=== PATIENT | male | born 1950 | race Caucasian/White ===

== ENCOUNTER 2022-05-26 12:14 | Inpatient (IN) ==
[2022-05-26] MEDS ORDERED: 0.9 % SODIUM CHLORIDE 500 ML IV ONE ×2 (12:15→12:36)
[2022-05-26] MEDS ORDERED: IOPAMIDOL 100 ML BOTTLE IV ONE (12:15)
[2022-05-26 12:34] LABS: POC Calcium, Ionized 1.14 (1.16-1.32); POC Creatinine 2.3 (0.6-1.2); POC Potassium 4.2 (3.3-5.1)
[2022-05-26] MEDS ORDERED: methylPREDNISolone SOD SUCC 125 MG/2 ML VIAL IV ONE (12:36)
[2022-05-26] MEDS ORDERED: IPRATROPIUM/ALBUTEROL 3 ML AMPUL.NEB NEB ONE (12:36)
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
[2022-05-26 13:29] LABS: Hematocrit 39.6 % (40.1-51.0); Hemoglobin 12.2 g/dL (13.7-17.5); Mean Cell Volume 89.8 fL (80.0-100.0); Mean Corpuscular HGB Conc 30.8 g/dL (31.0-36.0); Mean Platelet Volume 8.8 fL (8.8-12.5); Platelet Count 554 K/mcL (140-440); RBC 4.41 M/mcL (4.63-6.08); Red Cell Distribution Width 15.6 % (11.5-14.5); WBC 20.1 K/mcL (4.5-11.0)
--- NOTE | 2022-05-26 13:31 | Cat Scan Report ---
INDICATION: AMS COMPARISON: Previous MRI scan dated 06/16/2021 TECHNIQUE: Axial noncontrast-enhanced images through the brain. Sagittally and coronally reformatted images. FINDINGS: Cerebral hemispheres:This no acute intra-axial hemorrhage. No focal attenuation abnormalities or localized mass effect.There is cerebral atrophy with enlargement of superficial subarachnoid spaces and ventricles. There is severe white matter abnormality. This is considered advanced for age. This is probably secondary to small vessel ischemic change. Clinical correlation for history of diabetes or hypertension recommended. Demyelinating disease, or vasculitis could have a similar appear Brainstem and cerebellum:No intra-axial abnormality Extra-axial:No acute hemorrhage. No subdural or epidural hematoma. No subarachnoid hemorrhage. Basilar cisterns are normal Calvarial:No calvarial fracture. No lytic lesion Temporal bones are negative. No destructive lesions Soft tissue, orbits, sinuses:Mild inflammatory disease in the maxillary sinuses IMPRESSION: 1. Cerebral atrophy and severe white matter abnormality 2. No acute abnormality The exam was performed using radiation dose optimization techniques including, but not limited to, automated exposure control, adjustment of the mA and/or kV according to patient size and use of iterative reconstruction technique. Interpreted and Authenticated by: Carlton Geller 05/26/22
--- NOTE | 2022-05-26 13:32 | XRay Report ---
INDICATION: cough TECHNIQUE: AP portable semiupright chest x-ray COMPARISON: Previous chest x-rays dated 03/08/2022, 05/10/2015 FINDINGS: Lungs:Lungs are negative. No focal pulmonary parenchymal infiltrate or mass Heart, vascular:No significant cardiomegaly. Pulmonary vascularity is normal. No pulmonary edema or pulmonary congestion Mediastinum, rebecca:No mediastinal widening. No hilar mass Pleura:Elevation of the left hemidiaphragm. No evidence for pleural effusion Skeletal:Negative. IMPRESSION: 1. Elevated left hemidiaphragm 2. Otherwise negative AP chest x-ray Interpreted and Authenticated by: Carlton Geller 05/26/22
[2022-05-26 13:47] LABS: ALT/SGPT 8 U/L (<40); AST/SGOT 13 U/L (<40); Alkaline Phosphatase 104 U/L (39-117); Bilirubin,Total 0.3 mg/dL (0.1-1.0); Blood Urea Nitrogen 25 mg/dL (8-23); Calcium 9.2 mg/dL (8.6-10.4); Carbon Dioxide 24 mmol/L (22-30); Chloride 99 mmol/L (96-108); Globulin 3.9 gm/dL (2.2-3.7); Glomerular Filtration Rate 30; Glucose 141 mg/dL (70-105)
[2022-05-26 13:56] LABS: Band Neutrophils % 4 % (0-10); Lymphocytes % 7 % (15-49); Monocytes % (Manual) 7 % (1-12); Platelet Estimate INCREASED (Normal); RBC Morphology NORMAL (Normal); Segmented Neutrophils % 82 % (38-78)
[2022-05-26 16:03] LABS: Appearance,Urine CLOUDY (Clear); Bacteria,Urine MANY /hpf (0); Bilirubin,Urine Negative (Negative); Color,Urine YELLOW; Culture Indicated,Urine yes; Glucose,Urine (UA) Negative (Negative); Ketones,Urine 5 mg/dL (Negative); Leukocyte Esterase,Urine 250 /uL (Negative); Mucus,Urine FEW /hpf; Nitrate,Urine Negative (Negative); Protein,Urine 100 mg/dL (Negative); Specific Gravity,Urine 1.012 (1.000-1.035); Urine Blood >=1.0 mg/dL (Negative); Urine Cellular Cast 3 /lph (0-0); Urine Granular Cast 4 /lph (0-0); Urine Hyaline Cast 3 /lph (0-2); Urine RBC 103 /hpf (0-3); Urine Squamous Epithelial Cell 0 /hpf (0-4); Urine Transitional Epi Cells 1 /hpf (0-2); Urine WBC 170 /hpf (0-4); Urobilinogen,Urine Negative
[2022-05-26] MEDS ORDERED: LEVOFLOXACIN 500 MG/100 ML BAG IV ONE (16:06)
--- NOTE | 2022-05-26 19:53 | Emergency Department Note ---
Course Course Course Narrative: I assumed care of patient at 1899 pending lab and imaging results, please refer to Dr. Mansfield's note for detailed providing patient's care prior to 1899. Repeat VBG and lactic show that patient's pH was normal and his lactic acid have improved. CT of the chest abdomen pelvis was obtained and was negative for PE but did show left middle lobe pneumonia and lung impaction which would be attributing to his hypoxia. Patient was weaned down to 4 L of oxygen via mask from 10 L. Patient does meet sepsis criteria due to his UTI, pneumonia, leukocytosis and a heart rate of 99 on initial presentation. Case was discussed with hospitalist who has graciously except the patient to be admitted to the hospital. Plan of care discussed with patient and family and expressed verbal understanding and agreement. Vital Signs Vital signs: Vital Signs Temperature 97.5 F 05/26/22 12:22 Pulse Rate 99 H 05/26/22 12:22 Respiratory Rate 22 05/26/22 12:22 Blood Pressure 142/87 05/26/22 12:22 Pulse Oximetry (%) 91 05/26/22 12:22 Oxygen Delivery Method 05/26/22 12:22 Oxygen Flow Rate (L/min) 5 05/26/22 12:22 Temperature 97.5 F 05/26/22 12:22 Pulse Rate 72 05/26/22 19:16 Respiratory Rate 15 05/26/22 19:31 Blood Pressure 160/87 05/26/22 19:31 Pulse Oximetry (%) 98 05/26/22 19:31 Oxygen Delivery Method 05/26/22 19:32 Oxygen Flow Rate (L/min) 4 05/26/22 19:32 [facility] MDM Narrative Medical decision making narrative: Narrative: Differential Diagnosis Differential Diagnosis: Sepsis, encephalopathy, pneumonia Medical Records Medical records reviewed: Yes I reviewed the patient's medical records. Lab Data Lab results reviewed: Yes I reviewed the patient's lab results. Result diagrams: 05/26/22 12:43 05/26/22 12:37 Labs: Lab Results 05/26/22 05/26/22 05/26/22 Range/Units 12:26 12:37 12:37 WBC 20.1 H (4.5-11.0) K/mcL RBC 4.41 L (4.63-6.08) M/mcL Hgb 12.2 L (13.7-17.5) g/dL Hct 39.6 L (40.1-51.0) % POC Hct 40.0 L (41-55) MCV 89.8 (80.0-100.0) fL MCH 27.7 (26.0-34.0) pg MCHC 30.8 L (31.0-36.0) g/dL RDW 15.6 H (11.5-14.5) % Plt Count 554 H (140-440) K/mcL MPV 8.8 (8.8-12.5) fL Immature Gran % (Auto) Neut % (Auto) Lymph % (Auto) [place] % (Auto) Eos % (Auto) Baso % (Auto) Lymph # (Auto) [place] # (Auto) Eos # (Auto) Baso # (Auto) Seg Neutrophils % 82 H (38-78) % Band Neutrophils % 4 (0-10) % Lymphocytes % 7 L (15-49) % Monocytes % (Manual) 7 (1-12) % Immature Gran # Absolute Neutrophils Differential Comment Platelet Estimate Increased A (Normal) RBC Morphology Normal (Normal) D-Dimer (0.27-0.50) ug/mL POC VBG pH (7.32-7.42) POC VBG pCO2 at Temp (41-51) POC VBG pO2 (25-40) POC VBG HCO3 (24-28) POC VBG Total CO2 (25-29) POC Venous O2 Sat (40-70) POC VBG Base Excess (-2-2) VBG Lactic Acid 1.9 (0.5-2.0) mmol/L POC Sodium 142 (133-145) Sodium 139 (133-145) mmol/L POC Potassium 4.2 (3.3-5.1) Potassium 4.0 (3.3-5.1) mmol/L POC Chloride 106 (96-108) Chloride 99 (96-108) mmol/L Carbon Dioxide 24 (22-30) mmol/L POC Total CO2 25.0 (22-30) Anion Gap 16.0 (8.0-16.0) POC BUN 33 H (6-20) BUN 25 H (8-23) mg/dL Creatinine 2.1 H (0.7-1.2) mg/dL POC Creatinine 2.3 H (0.6-1.2) GFR Calculation 30 Glucose 141 H (70-105) mg/dL POC Glucose 142 H (70-105) Calcium 9.2 (8.6-10.4) mg/dL POC WB Ioniz Calcium 1.14 L (1.16-1.32) Total Bilirubin 0.3 (0.1-1.0) mg/dL AST 13 (<40) U/L ALT 8 (<40) U/L Alkaline Phosphatase 104 (39-117) U/L C-Reactive Protein (0.03-0.80) mg/dL Total Protein 7.9 (5.9-8.4) gm/dL Albumin 4.0 (3.2-5.2) gm/dL Globulin 3.9 H (2.2-3.7) gm/dL Albumin/Globulin Ratio 1.0 (1.0-2.3) Urine Color Urine Appearance (Clear) Urine pH (5.0-9.0) Ur Specific [place] (1.000-1.035) Urine Protein (Negative) mg/dL Urine Glucose (UA) (Negative) mg/dL Urine Ketones (Negative) mg/dL Urine Occult Blood (Negative) mg/dL Urine Nitrate (Negative) Urine Bilirubin (Negative) mg/dL Urine Urobilinogen mg/dL Ur Leukocyte Esterase (Negative) /uL Urine RBC (0-3) /hpf Urine WBC (0-4) /hpf Ur Squamous Epith Cells (0-4) /hpf Ur Transition Epith Cell (0-2) /hpf Urine Bacteria (0) /hpf Cellular Casts (0-0) /lph Hyaline Casts (0-2) /lph Granular Casts (0-0) /lph Urine Mucus (None) /hpf Ur Culture Indicated? POC Troponin I (0.00-0.08) 05/26/22 05/26/22 05/26/22 Range/Units 12:37 12:43 12:43 WBC TNP (4.5-11.0) K/mcL RBC TNP (4.63-6.08) M/mcL Hgb TNP (13.7-17.5) g/dL Hct TNP (40.1-51.0) % POC Hct (41-55) MCV TNP (80.0-100.0) fL MCH TNP (26.0-34.0) pg MCHC TNP (31.0-36.0) g/dL RDW TNP (11.5-14.5) % Plt Count TNP (140-440) K/mcL MPV TNP (8.8-12.5) fL Immature Gran % (Auto) TNP Neut % (Auto) TNP Lymph % (Auto) TNP [place] % (Auto) TNP Eos % (Auto) TNP Baso % (Auto) TNP Lymph # (Auto) TNP [place] # (Auto) TNP Eos # (Auto) TNP Baso # (Auto) TNP Seg Neutrophils % (38-78) % Band Neutrophils % (0-10) % Lymphocytes % (15-49) % Monocytes % (Manual) (1-12) % Immature Gran # TNP Absolute Neutrophils TNP Differential Comment TNP Platelet Estimate (Normal) RBC Morphology (Normal) D-Dimer 2.49 H (0.27-0.50) ug/mL POC VBG pH (7.32-7.42) POC VBG pCO2 at Temp (41-51) POC VBG pO2 (25-40) POC VBG HCO3 (24-28) POC VBG Total CO2 (25-29) POC Venous O2 Sat (40-70) POC VBG Base Excess (-2-2) VBG Lactic Acid (0.5-2.0) mmol/L POC Sodium (133-145) Sodium (133-145) mmol/L POC Potassium (3.3-5.1) Potassium (3.3-5.1) mmol/L POC Chloride (96-108) Chloride (96-108) mmol/L Carbon Dioxide (22-30) mmol/L POC Total CO2 (22-30) Anion Gap (8.0-16.0) POC BUN (6-20) BUN (8-23) mg/dL Creatinine (0.7-1.2) mg/dL POC Creatinine (0.6-1.2) GFR Calculation Glucose (70-105) mg/dL POC Glucose (70-105) Calcium (8.6-10.4) mg/dL POC WB Ioniz Calcium (1.16-1.32) Total Bilirubin (0.1-1.0) mg/dL AST (<40) U/L ALT (<40) U/L Alkaline Phosphatase (39-117) U/L C-Reactive Protein 12.10 H (0.03-0.80) mg/dL Total Protein (5.9-8.4) gm/dL Albumin (3.2-5.2) gm/dL Globulin (2.2-3.7) gm/dL Albumin/Globulin Ratio (1.0-2.3) Urine Color Urine Appearance (Clear) Urine pH (5.0-9.0) Ur Specific [place] (1.000-1.035) Urine Protein (Negative) mg/dL Urine Glucose (UA) (Negative) mg/dL Urine Ketones (Negative) mg/dL Urine Occult Blood (Negative) mg/dL Urine Nitrate (Negative) Urine Bilirubin (Negative) mg/dL Urine Urobilinogen mg/dL Ur Leukocyte Esterase (Negative) /uL Urine RBC (0-3) /hpf Urine WBC (0-4) /hpf Ur Squamous Epith Cells (0-4) /hpf Ur Transition Epith Cell (0-2) /hpf Urine Bacteria (0) /hpf Cellular Casts (0-0) /lph Hyaline Casts (0-2) /lph Granular Casts (0-0) /lph Urine Mucus (None) /hpf Ur Culture Indicated? POC Troponin I (0.00-0.08) 05/26/22 05/26/22 05/26/22 Range/Units 12:59 15:05 19:32 WBC (4.5-11.0) K/mcL RBC (4.63-6.08) M/mcL Hgb (13.7-17.5) g/dL Hct (40.1-51.0) % POC Hct (41-55) MCV (80.0-100.0) fL MCH (26.0-34.0) pg MCHC (31.0-36.0) g/dL RDW (11.5-14.5) % Plt Count (140-440) K/mcL MPV (8.8-12.5) fL Immature Gran % (Auto) Neut % (Auto) Lymph % (Auto) [place] % (Auto) Eos % (Auto) Baso % (Auto) Lymph # (Auto) [place] # (Auto) Eos # (Auto) Baso # (Auto) Seg Neutrophils % (38-78) % Band Neutrophils % (0-10) % Lymphocytes % (15-49) % Monocytes % (Manual) (1-12) % Immature Gran # Absolute Neutrophils Differential Comment Platelet Estimate (Normal) RBC Morphology (Normal) D-Dimer (0.27-0.50) ug/mL POC VBG pH 7.36 (7.32-7.42) POC VBG pCO2 at Temp 48.2 (41-51) POC VBG pO2 55 H (25-40) POC VBG HCO3 27.4 (24-28) POC VBG Total CO2 29.0 (25-29) POC Venous O2 Sat 86.0 H (40-70) POC VBG Base Excess 2.0 (-2-2) VBG Lactic Acid 0.6 (0.5-2.0) mmol/L POC Sodium (133-145) Sodium (133-145) mmol/L POC Potassium (3.3-5.1) Potassium (3.3-5.1) mmol/L POC Chloride (96-108) Chloride (96-108) mmol/L Carbon Dioxide (22-30) mmol/L POC Total CO2 (22-30) Anion Gap (8.0-16.0) POC BUN (6-20) BUN (8-23) mg/dL Creatinine (0.7-1.2) mg/dL POC Creatinine (0.6-1.2) GFR Calculation Glucose (70-105) mg/dL POC Glucose (70-105) Calcium (8.6-10.4) mg/dL POC WB Ioniz Calcium (1.16-1.32) Total Bilirubin (0.1-1.0) mg/dL AST (<40) U/L ALT (<40) U/L Alkaline Phosphatase (39-117) U/L C-Reactive Protein (0.03-0.80) mg/dL Total Protein (5.9-8.4) gm/dL Albumin (3.2-5.2) gm/dL Globulin (2.2-3.7) gm/dL Albumin/Globulin Ratio (1.0-2.3) Urine Color Yellow Urine Appearance Cloudy A (Clear) Urine pH 5.0 (5.0-9.0) Ur Specific [place] 1.012 (1.000-1.035) Urine Protein 100 A (Negative) mg/dL Urine Glucose (UA) Negative (Negative) mg/dL Urine Ketones 5 A (Negative) mg/dL Urine Occult Blood >=1.0 A (Negative) mg/dL Urine Nitrate Negative (Negative) Urine Bilirubin Negative (Negative) mg/dL Urine Urobilinogen Negative mg/dL Ur Leukocyte Esterase 250 A (Negative) /uL Urine RBC 103 H (0-3) /hpf Urine WBC 170 H (0-4) /hpf Ur Squamous Epith Cells 0 (0-4) /hpf Ur Transition Epith Cell 1 (0-2) /hpf Urine Bacteria Many A (0) /hpf Cellular Casts 3 H (0-0) /lph Hyaline Casts 3 H (0-2) /lph Granular Casts 4 H (0-0) /lph Urine Mucus Few A (None) /hpf Ur Culture Indicated? yes POC Troponin I 0.02 (0.00-0.08) ED POC Tests ED POC Tests: KATHY - SARS Antigen Negative Radiology Data Radiology results reviewed: Yes I reviewed the patient's radiology results. Radiology results narrative: Chest x-ray obtained with image reviewed myself, agree with radiologist to rotation CT chest abdomen pelvis obtained which was negative for PE but positive for pneumonia. Core Measures AMI Core Measures Followed: Yes Discharge Plan Patient/Caregiver Discharge Instructions Pt seen by [employer]ER/PA only: No Clinical Impression: Acute UTI, Acute respiratory failure with hypoxia, Encephalopathy Sepsis Qualifiers: Sepsis type: sepsis due to unspecified organism Sepsis acute organ dysfunction status: with acute organ dysfunction Severe sepsis acute organ dysfunction type: acute respiratory failure Acute respiratory failure type: with hypoxia Severe sepsis shock status: without septic shock Qualified Code(s): A41.9 - Sepsis, unspecified organism Pneumonia involving left lung Qualifiers: Pneumonia type: due to unspecified organism Lung location: unspecified part of lung Qualified Code(s): J18.9 - Pneumonia, unspecified organism Patient Disposition: Xfer As Inpt ([facility]) Condition: Fair Follow up with: Calli Ordaz MD [Primary Care Provider] - Prescriptions: No Action clopidogrel 75 mg tablet 75 mg PO QDAY Label Comments: PCP Rx pantoprazole 40 mg tablet,delayed release (DR/EC) 40 mg PO QDAY Label Comments: PCP Rx metoprolol succinate [Toprol XL] 50 mg tablet extended release 24 hr 50 mg PO QDAY amitriptyline 50 mg tablet 50 mg PO QHS Label Comments: PCP Rx atorvastatin 10 mg tablet 10 mg PO QDAY Label Comments: PCP RX duloxetine 30 mg capsule,delayed release(DR/EC) 30 mg PO QDAY paliperidone 3 mg tablet extended release 24hr 3 mg PO HS Label Comments: PCP Rx cholecalciferol (vitamin D3) 50 mcg (2,000 unit) capsule 2,000 unit PO QDAY Label Comments: PCP OTC RX Rx Instructions: administer with meals docusate sodium 100 mg capsule 100 mg PO QDAY doxazosin 4 mg tablet 4 mg PO QHS Qty: 30 11RF Rx Instructions: New dosage
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
--- NOTE | 2022-05-26 21:01 | Cat Scan Report ---
INDICATION: sepsis COMPARISON: None. TECHNIQUE: Axial images were obtained through the chest,abdomen and pelvis. Sagittally and coronally reformatted images. 90ml Isovue 370 injected intravenously. Oral contrast material was not administered FINDINGS: Chest CT: Lungs:Negative right lung. No focal pulmonary parenchymal infiltrate or mass. Diffuse abnormality in the left lung. There are groundglass infiltrates in the left upper lobe. There is left lower lobe consolidation. Appearance is consistent with pneumonia. There is dense consolidation in the perihilar left lower lobe. There are secretions within the distal left mainstem bronchus and left lower lobe bronchus with complete filling of the bronchi and nonvisualization airway. Follow-up CT scan recommended. Mediastinum:No pathologic mediastinal adenopathy. No hilar mass. Thoracic aorta is normal without aneurysmal dilatation Main pulmonary artery, right pulmonary artery, left pulmonary artery are negative. No intraluminal filling defects. Main pulmonary artery measures 3 cm in cross-sectional diameter. This is at the upper limits of normal. No lobar, segmental, or subsegmental emboli. Examination is negative for pulmonary embolism Heart:No significant cardiomegaly. No pericardial effusion no significant reflux of contrast material into the inferior vena cava or hepatic veins. There are prominent coronary artery calcifications Pleura:No pleural fluid. No pleural-based mass. No pleural calcifications Axilla, supraclavicular regions, chest wall:No pathologic axillary or supraclavicular adenopathy Musculoskeletal:Negative thoracic spine. No compression fractures. No lytic lesions. No paraspinal mass Abdomen/Pelvis: Liver:Negative liver. No focal intrahepatic mass. Liver contour is smooth. There is no ascites Gallbladder, bilary:No calcified gallstones. No gallbladder wall thickening or pericholecystic fluid. No dilated bile ducts Spleen:No splenomegaly. No focal intrasplenic abnormality. Normal enhancement of splenic and portal veins. Pancreas:No pancreatic mass. No peripancreatic abnormality Adrenal glands:Negative Kidneys,ureters,bladder:No solid renal mass. No hydronephrosis. No obstructing or nonobstructing calculi. Low density lesion in the right upper pole is probably a benign cyst No hydroureter. No ureteral calculus. There is a [place] catheter within the urinary bladder. Bladder wall is not well assessed Gastrointestinal:Prominent fecal material consistent with constipation. There is rectal impaction. There is mild rectal pneumatosis which is probably stercoral. No detectable mass. Prominent sigmoid diverticulosis. No evidence for diverticulitis. Small bowel is prominent, especially in the left upper quadrant. This is fluid contained. This may be due to enteritis. There is no transition point. No evidence for significant mechanical small bowel obstruction Negative stomach and duodenum. No focal abnormality. Appendix: The appendix is not visualized. No evidence for appendicitis Vascular:There is atherosclerotic disease of the abdominal aorta. There is an infrarenal abdominal aortic aneurysm with maximum AP dimension of 3.3 cm. There is no para-aortic abnormality. There is a right common iliac artery aneurysm which measures 3.4 cm in cross-sectional diameter. There is mural thrombus. Lymphatic:No pathologic retroperitoneal or mesenteric adenopathy Mesentery, peritoneum:No free intraperitoneal fluid. No intra-abdominal abscess. No pneumoperitoneum Reproductive: Prostate does not appear significantly enlarged. Musculoskeletal:No compression fractures. No lytic lesions. Sacrum, pelvis, hips are negative. There is a very small umbilical hernia containing only fat IMPRESSION: 1. Negative pulmonary CTA. No pulmonary embolism. 2. Groundglass infiltrates in the left upper lobe. Dense consolidation in the perihilar left lower lobe with infiltrates throughout the left lower lobe. Appearance is consistent with pneumonia 3. Extensive secretions within the left mainstem bronchus and lower lobe bronchi indication 4. Prominent fecal material consistent with constipation. There is rectal impaction. There is mild rectal pneumatosis consistent with stercoral colitis 5. Extensive diverticulosis without evidence for diverticulitis 6. Infrarenal abdominal aortic aneurysm and right common iliac artery aneurysm The exam was performed using radiation dose optimization techniques including, but not limited to, automated exposure control, adjustment of the mA and/or kV according to patient size and use of iterative reconstruction technique. Interpreted and Authenticated by: Carlton Geller 05/26/22
[2022-05-26] MEDS ORDERED: VANCOMYCIN PER PHARMACY IV ONE (21:46)
[2022-05-26] MEDS ORDERED: SENNOSIDES 1 TABLET PO PRN (21:46)
[2022-05-26] MEDS ORDERED: IPRATROPIUM/ALBUTEROL 3 ML AMPUL.NEB NEB PRN (21:46)
[2022-05-26] MEDS ORDERED: ACETAMINOPHEN 325 MG TABLET PO PRN (21:46)
[2022-05-26] MEDS ORDERED: LACTULOSE 20 GM/30 ML ORAL.SOL PO PRN (21:46)
[2022-05-26] MEDS ORDERED: MEROPENEM 1 GM in 0.9 % SODIUM CHLORIDE 50 ML IV SCH (21:46)
[2022-05-26] MEDS ORDERED: ONDANSETRON 4 MG/2 ML VIAL IV PRN (21:46)
[2022-05-26] MEDS: DEXTROSE 5%-LR 1,000 ML IV SCH (22:00)
[2022-05-26] MEDS ORDERED: MEROPENEM 1 GM in 0.9 % SODIUM CHLORIDE 100 ML IV ONE (22:00)
[2022-05-26] MEDS ORDERED: VANCOMYCIN PER PHARMACY IV SCH (22:15)
[2022-05-26] MEDS ORDERED: VANCOMYCIN 1,000 MG in 0.9 % SODIUM CHLORIDE 250 ML IV ONE (22:15)
[2022-05-26] MEDS: PALIPERIDONE 3 MG PO SCH (22:27)
[2022-05-26] MEDS: DOXAZOSIN 4 MG TABLET PO SCH (22:27)
[2022-05-26] MEDS: DOCUSATE SODIUM 100 MG CAPSULE PO SCH (22:27)
[2022-05-26] MEDS: AMITRIPTYLINE 25 MG TABLET PO SCH (22:27)
[2022-05-26] MEDS: HEPARIN 5,000 UNIT/ML VIAL SQ SCH (22:28)
[2022-05-26] MEDS: 0.9 % SODIUM CHLORIDE 10 ML SYRINGE IV SCH (22:29)
[2022-05-27] MEDS: 0.9 % SODIUM CHLORIDE 10 ML SYRINGE IV SCH ×3 (06:01→20:30)
[2022-05-27 07:06] LABS: Basophils # (Auto) 0.03 K/mcL (0.00-0.30); Basophils % (Auto) 0.1 % (0.0-2.0); Eosinophils # (Auto) 0 K/mcL (0.00-0.70); Eosinophils % (Auto) 0 % (0.0-7.0); Hematocrit 38.6 % (40.1-51.0); Lymphocytes # (Auto) 0.95 K/mcL (1.50-4.80); Lymphocytes % (Auto) 4.3 % (15.5-49.0); Mean Cell Volume 89.8 fL (80.0-100.0); Mean Corpuscular HGB Conc 31.1 g/dL (31.0-36.0); Mean Platelet Volume 8.7 fL (8.8-12.5); Monocytes # (Auto) 1.71 K/mcL (0.10-0.90); Monocytes % (Auto) 7.8 % (1.0-12.0); Neutrophils % (Auto) 87.3 % (38.0-78.0); Platelet Count 542 K/mcL (140-440); Red Cell Distribution Width 15.7 % (11.5-14.5); WBC 21.9 K/mcL (4.5-11.0)
[2022-05-27 07:41] LABS: ALT/SGPT 7 U/L (<40); AST/SGOT 10 U/L (<40); Albumin 3.8 gm/dL (3.2-5.2); Albumin/Globulin Ratio 1.3 (1.0-2.3); Alkaline Phosphatase 100 U/L (39-117); Bilirubin,Total < 0.2 mg/dL (0.1-1.0); Blood Urea Nitrogen 32 mg/dL (8-23); Calcium 9.1 mg/dL (8.6-10.4); Carbon Dioxide 23 mmol/L (22-30); Chloride 107 mmol/L (96-108); Glomerular Filtration Rate 34; Glucose 130 mg/dL (70-105)
[2022-05-27] MEDS: HEPARIN 5,000 UNIT/ML VIAL SQ SCH ×2 (08:06→20:30)
[2022-05-27] MEDS: VITAMIN D3 25 MCG TABLET PO SCH ×2 (08:06→12:21)
[2022-05-27] MEDS: CLOPIDOGREL 75 MG TABLET PO SCH ×2 (08:06→12:20)
[2022-05-27] MEDS: METOPROLOL SUCCINATE 50 MG TAB.XL.24H PO SCH (08:07)
[2022-05-27] MEDS: DEXTROSE 5%-LR 1,000 ML IV SCH ×2 (08:07→19:06)
[2022-05-27] MEDS: PANTOPRAZOLE 40 MG TABLET PO SCH ×2 (08:07→12:19)
[2022-05-27] MEDS: MEROPENEM 1 GM in 0.9 % SODIUM CHLORIDE 100 ML IV SCH ×2 (08:07→20:30)
[2022-05-27] MEDS: DOCUSATE SODIUM 100 MG CAPSULE PO SCH ×4 (08:07→20:13)
[2022-05-27] MEDS: ATORVASTATIN 10 MG TABLET PO SCH ×2 (08:13→12:20)
[2022-05-27] MEDS: DULoxetine 30 MG CAPSULE PO SCH (08:13)
--- NOTE | 2022-05-27 10:41 | Internal Med Progress Note ---
SUBJECTIVE Subjective Patient information: Note initiated : 05/27/22 at 10:34 am Service Date, if different from initiated Date: [] Patient: Rich Jasmine a 72 y/o M admitted on 05/26/22 for altered LOC. Chief Complaint: [] Interval history: Mr. Jasmine is a 72 year old M history of right AKA, BPH, hypertensions with chronic kidney disease, CAD, presenting with 3-day history of general body weakness and altered mental status. According to the right, patient has been progressively getting weak to the point that she cannot care for him. She also noticed altered mental status over the same period of time. As a result, EMS was called to bring the patient to our ED for further evaluation and treatments. He was found to be desaturating on room air so oxygen mask was offered and he was up to 15 L/min of oxygen at that point in the ED. Rest of the vital signs within normal limits. CBC pending at the moment. Chemistry showing serum creatinine of 2.1 with baseline 1.8. D-dimer elevated to 2.49. Lactic acid 1.9 with repeat 0.6. Urinalysis suggesting the presence of urinary tract infections. CT of the head without contrast did not show any acute intracranial pathologies. CTA chest abdomen pelvis showing negative PE, otherwise left sided multifocal infiltrate consistent with pneumonia. No acute intra-abdominal or pelvic pathologies. 05/27: Afebrile overnight. Patient is currently on 2 and half liters of nasal cannula oxygen but desaturating at 85% so will likely be switched to oxygen mask. Blood culture growing gram-negative bacillus. WBC this morning 21.9. MRSA screening negative. [place] pending. Patient is complaining of shortness of breath, nonproductive cough, negative respiratory wheezings. He is coming of mild chest pain. He denies any subjective fever chills or diaphoresis. Continue supplemental oxygen therapy titrate to maintain SPO2 above 92%. DC vancomycin while continuing meropenem. Repeat blood culture x2 on 05/28/22. 2D echocardiogram to rule out endocarditis. Keep the patient n.p.o. status: Continue D5 LR at 100 cc/h, pending speech therapy swallowing evaluations. Pending physical therapy evaluation and treatment for placement planning. Constitutional Vitals: Vital Signs Temp Pulse Resp BP Pulse Ox O2 Del Method O2 Flow Rate 37.6 C H 100 H 23 H 184/106 99 2 05/27/22 08:01 05/27/22 10:01 05/27/22 10:01 05/27/22 10:01 05/27/22 10:01 05/27/22 10:01 05/27/22 10:01 Period Temp Pulse Resp BP Sys/Esposito Pulse Ox O2 Del Method O2 Flow Rate Last 24 Hr 36.4 C-37.6 C 66-100 14-23 131-186/69-106 78-100 Nasal Cannula-Oxymask 2-15 Intake and Output 05/26/22 05/27/22 05/27/22 21:59 05:59 13:59 Intake Total 807 939 5109 Output Total 325 Balance 794 59 2506 Weight 65.952 kg Intake & Output: Intake & Output 05/26/22 05/27/22 05/27/22 21:59 05:59 13:59 Intake Total 769 421 3865 Output Total 325 Balance 496 70 2492 Weight 65.952 kg Intake: IV 114 268 1633 Dextrose 5%-Lactated Ringers 1, 1000 000 ml @ 100 mls/hr IV .Q10H JODY Rx#:[id number] Merrem 1 gm In Sodium Chloride 100 0.9% 100 ml @ 100 mls/hr IV ONCE ONE Rx#:[id number] Vancomycin 1,000 mg In Sodium 250 Chloride 0.9% 250 ml @ 250 mls/ hr IV ONCE ONE Rx#:[id number] Oral 0 Output: Urine Catheter Amount 325 Other: Urine Appearance Clear Uretheral (Workman) Clear Clear Urine Color Bright Yellow Uretheral (Workman) Bright Yellow Yellow Urine Odor Uretheral (Workman) Normal Stool Size Smear Stool Color Brown Head Head exam: Present atraumatic and normal inspection Eye Eye exam: Present normal appearance ENT ENT exam: Present mucous membranes moist, normal exam and normal external ear exam Additional comments: Nasal cannula in place Neck Neck exam: Present normal inspection Respiratory Respiratory exam: Present decreased breath sounds and rhonchi Cardiovascular Cardiovascular exam: Present normal rate and rhythm GI/Abdominal GI/Abdominal exam: Present normal bowel sounds Extremities Exam Extremities exam: Present full ROM; Absent normal inspection Additional comments: Right AKA Back Exam Back exam: Present normal inspection Neurological Exam Neurological exam: Present alert and oriented X3 Skin Skin exam: Present intact and warm OBJ DATA Labs CBC & Chem 7: 05/27/22 05:28 05/27/22 05:28 Labs: Abnormal Lab Results 05/27/22 05/27/22 05/26/22 05:28 05:28 19:32 WBC 21.9 H RBC 4.30 L Hgb 12.0 L Hct 38.6 L POC Hct MCHC RDW 15.7 H Plt Count 542 H MPV 8.7 L Neut % (Auto) 87.3 H Lymph % (Auto) 4.3 L Lymph # (Auto) 0.95 L [place] # (Auto) 1.71 H Seg Neutrophils % Lymphocytes % Immature Gran # 0.11 H Absolute Neutrophils 19.13 H Platelet Estimate D-Dimer POC VBG pO2 55 H POC Venous O2 Sat 86.0 H POC BUN BUN 32 H Creatinine 1.9 H POC Creatinine Glucose 130 H POC Glucose POC WB Ioniz Calcium C-Reactive Protein Globulin Procalcitonin Urine Appearance Urine Protein Urine Ketones Urine Occult Blood Ur Leukocyte Esterase Urine RBC Urine WBC Urine Bacteria Cellular Casts Hyaline Casts Granular Casts Urine Mucus 05/26/22 05/26/22 05/26/22 15:05 12:43 12:37 WBC RBC Hgb Hct POC Hct MCHC RDW Plt Count MPV Neut % (Auto) Lymph % (Auto) Lymph # (Auto) [place] # (Auto) Seg Neutrophils % Lymphocytes % Immature Gran # Absolute Neutrophils Platelet Estimate D-Dimer POC VBG pO2 POC Venous O2 Sat POC BUN BUN Creatinine POC Creatinine Glucose POC Glucose POC WB Ioniz Calcium C-Reactive Protein 12.10 H Globulin Procalcitonin 1.06 H Urine Appearance Cloudy A Urine Protein 100 A Urine Ketones 5 A Urine Occult Blood >=1.0 A Ur Leukocyte Esterase 250 A Urine RBC 103 H Urine WBC 170 H Urine Bacteria Many A Cellular Casts 3 H Hyaline Casts 3 H Granular Casts 4 H Urine Mucus Few A 05/26/22 05/26/22 05/26/22 12:37 12:37 12:37 WBC 20.1 H RBC 4.41 L Hgb 12.2 L Hct 39.6 L POC Hct MCHC 30.8 L RDW 15.6 H Plt Count 554 H MPV Neut % (Auto) Lymph % (Auto) Lymph # (Auto) [place] # (Auto) Seg Neutrophils % 82 H Lymphocytes % 7 L Immature Gran # Absolute Neutrophils Platelet Estimate Increased A D-Dimer 2.49 H POC VBG pO2 POC Venous O2 Sat POC BUN BUN 25 H Creatinine 2.1 H POC Creatinine Glucose 141 H POC Glucose POC WB Ioniz Calcium C-Reactive Protein Globulin 3.9 H Procalcitonin Urine Appearance Urine Protein Urine Ketones Urine Occult Blood Ur Leukocyte Esterase Urine RBC Urine WBC Urine Bacteria Cellular Casts Hyaline Casts Granular Casts Urine Mucus 05/26/22 12:26 WBC RBC Hgb Hct POC Hct 40.0 L MCHC RDW Plt Count MPV Neut % (Auto) Lymph % (Auto) Lymph # (Auto) [place] # (Auto) Seg Neutrophils % Lymphocytes % Immature Gran # Absolute Neutrophils Platelet Estimate D-Dimer POC VBG pO2 POC Venous O2 Sat POC BUN 33 H BUN Creatinine POC Creatinine 2.3 H Glucose POC Glucose 142 H POC WB Ioniz Calcium 1.14 L C-Reactive Protein Globulin Procalcitonin Urine Appearance Urine Protein Urine Ketones Urine Occult Blood Ur Leukocyte Esterase Urine RBC Urine WBC Urine Bacteria Cellular Casts Hyaline Casts Granular Casts Urine Mucus Meds: Medications Acetaminophen (Acetaminophen 325 Mg Tablet) 650 mg PO Q6HP PRN; Protocol PRN Reason: Per Pain Protocol/Fever > 101 Albuterol/Ipratropium (Ipratropium/Albuterol 3 Ml Ampul.Neb) 3 ml NEB Q4HRT PRN PRN Reason: Wheezing Amitriptyline HCl (Amitriptyline 25 Mg Tablet) 50 mg PO [facility] Last Admin: 05/26/22 22:27 Dose: Not Given Atorvastatin Calcium (Atorvastatin 10 Mg Tablet) 10 mg PO QDAY [facility] Last Admin: 05/27/22 08:13 Dose: 10 mg Clopidogrel Bisulfate (Clopidogrel 75 Mg Tablet) 75 mg PO QDAY [facility] Last Admin: 05/27/22 08:06 Dose: 75 mg Docusate Sodium (Docusate Sodium 100 Mg Capsule) 100 mg PO QDAY [facility] Last Admin: 05/27/22 08:07 Dose: 100 mg Docusate Sodium (Docusate Sodium 100 Mg Capsule) 100 mg PO BID [facility] Last Admin: 05/27/22 08:08 Dose: Not Given Doxazosin Mesylate (Doxazosin 4 Mg Tablet) 4 mg PO QHS [facility] Last Admin: 05/26/22 22:27 Dose: Not Given Duloxetine HCl (Duloxetine 30 Mg Capsule) 30 mg PO QDAY [facility] Last Admin: 05/27/22 08:13 Dose: 30 mg Heparin Sodium (Porcine) (Heparin 5,000 Unit/Ml Vial) 5,000 unit SQ Q12 [facility] Last Admin: 05/27/22 08:06 Dose: 5,000 unit Dextrose/Lactated Ringer's (Dextrose 5%-Lactated Ringers) 1,000 mls @ 100 mls/hr IV .Q10H [facility] Last Admin: 05/27/22 08:07 Dose: 100 mls/hr Meropenem 1 gm/ Sodium (Chloride) 100 mls @ 100 mls/hr IV Q12H [facility] Last Admin: 05/27/22 08:07 Dose: 100 mls/hr Lactulose (Lactulose 20 Gm/30 Ml Oral.Sepideh) 10 gm PO DAILYP PRN PRN Reason: Constipation Metoprolol Succinate (Metoprolol Succinate 50 Mg Tab.Xl.24h) 50 mg PO QDAY [facility] Last Admin: 05/27/22 08:07 Dose: 50 mg Ondansetron HCl (Ondansetron 4 Mg/2 Ml Vial) 4 mg IV Q4HP PRN; Protocol PRN Reason: Nausea And Vomiting Pantoprazole Sodium (Pantoprazole 40 Mg Tablet) 40 mg PO ACB [facility] Last Admin: 05/27/22 08:07 Dose: 40 mg Paliperidone 3 Mg Tablet Extended Release 24hr 1 dose PO HS [facility] Last Admin: 05/26/22 22:27 Dose: Not Given Senna (Sennosides 1 Tablet) 2 tab PO HSP PRN PRN Reason: Constipation Sodium Chloride (0.9 % Sodium Chloride 10 Ml Syringe) 10 ml IV Q8 [facility] Last Admin: 05/27/22 06:01 Dose: 10 ml Vitamin D (Vitamin D3 25 Mcg Tablet) 50 mcg PO DAILY [facility] Last Admin: 05/27/22 08:06 Dose: 50 mcg A/P Assessment and plan (1) Pneumonia involving left lung: Status: Acute Qualifiers: Lung location: unspecified part of lung Pneumonia type: due to unspecified organism Qualified Code(s): J18.9 - Pneumonia, unspecified organism (2) Acute UTI: Status: Acute (3) CAD (coronary artery disease): Status: Acute (4) Renal failure (ARF), acute on chronic: Status: Acute (5) Benign hypertension with CKD (chronic kidney disease) stage III: Status: Chronic Comment: [place] urinalysis Unremarkable renal ultrasound Relatively stable GFR (6) BPH associated with nocturia: Status: Chronic Comment: Nocturia x2 Sleeps with a urinal on his bedside stand (7) Acute respiratory failure with hypoxia: Status: Acute (8) Bacteremia due to Gram-negative bacteria: Status: Acute Narrative A/P Narrative: Assessment and Plans: 1. Left sided pneumonia with acute respiratory failure with hypoxia: Inpatient PCU NPO with LR@100cc/hr Speech therapy swallowing evaluation Serial lactic acid 1.9-->0.6 Procalcitonin 1.06 Blood culture, gram negative bacillus, see #6 Sputum culture, no growth to date MRSA screening negative [place] PCR cbc w/ auto diff in the morning to trend WBC d/c Vancomycin Meropenem (penicillin allergy) Supplemental oxygen 2. UTI: Serial lactic acid 1.9-->0.6 Procalcitonin 1.06 Blood culture, gram negative bacillus, see #6 Urine culture, no growth to date cbc w/ auto diff in the morning to trend WBC Meropenem (penicillin allergy) LR@100cc/hr 3. Acute kidney injury with hypertensive nephropathy/chronic kidney disease: Avoid nephrotoxic agents D5LR@100cc/hr CMP in the morning to trend kidney functions Metoprolol ER Doxazosin 4. h/o CAD: Plavix statin Metoprolol ER 5. BPH: Doxazosin 6. Gram negative bacillus bacteremia: Repeat blood cultures X2 on 05/28/22 2D echocardiogram to rule out endocarditis cbc w/ auto diff in the morning to trend WBC Meropenem GI ppx: PPI DVT ppx: Heparin Code status: Full Prognosis: guarded Disposition: inpatient PCU; PT Time Spent With Patient Time: Total time spent is greater than 50% in coordination of care (as documented) at patient's floor/unit and/or counseling patient: Total time spent with greater than 50% in coordination of care (as documented) at patient's floor/unit and/or counseling patient:: 35 - 50 minutes QUALITY VTE Deep Vein Thrombosis/Pulmonary Embolism Present on Admission: No
[2022-05-27] MEDS: ACETAMINOPHEN 650 MG/65 ML BAG IV PRN (12:49)
[2022-05-27] MEDS: AMITRIPTYLINE 25 MG TABLET PO SCH (20:30)
[2022-05-27] MEDS: PALIPERIDONE 3 MG PO SCH (20:30)
[2022-05-27] MEDS: DOXAZOSIN 4 MG TABLET PO SCH (20:30)
[2022-05-27] MEDS ORDERED: NON FORMULARY MEDICATION 1 DOSE MISCELL (Acetaminophen 500 mg Capsule) PO SCH (21:00)
[2022-05-27] MEDS: hydrALAZINE 20 MG/ML VIAL IV PRN (22:08)
[2022-05-27] MEDS ORDERED: hydrALAZINE 20 MG/ML VIAL ONE (22:19)
[2022-05-28] MEDS: ACETAMINOPHEN 650 MG/65 ML BAG IV PRN ×3 (01:05→18:51)
[2022-05-28] MEDS: 0.9 % SODIUM CHLORIDE 10 ML SYRINGE IV SCH ×4 (05:36→22:00)
[2022-05-28] MEDS: DEXTROSE 5%-LR 1,000 ML IV SCH ×3 (05:37→15:32)
[2022-05-28 07:23] LABS: Basophils # (Auto) 0.02 K/mcL (0.00-0.30); Basophils % (Auto) 0.2 % (0.0-2.0); Eosinophils # (Auto) 0.06 K/mcL (0.00-0.70); Eosinophils % (Auto) 0.6 % (0.0-7.0); Hemoglobin 10.8 g/dL (13.7-17.5); Lymphocytes # (Auto) 0.84 K/mcL (1.50-4.80); Lymphocytes % (Auto) 7.8 % (15.5-49.0); Mean Cell Volume 92.6 fL (80.0-100.0); Mean Corpuscular HGB Conc 30.9 g/dL (31.0-36.0); Mean Platelet Volume 8.8 fL (8.8-12.5); Monocytes # (Auto) 0.83 K/mcL (0.10-0.90); Monocytes % (Auto) 7.7 % (1.0-12.0); Neutrophils % (Auto) 83.1 % (38.0-78.0); Platelet Count 485 K/mcL (140-440); RBC 3.78 M/mcL (4.63-6.08); Red Cell Distribution Width 15.9 % (11.5-14.5); WBC 10.7 K/mcL (4.5-11.0)
[2022-05-28 07:36] LABS: ALT/SGPT < 5 U/L (<40); AST/SGOT 11 U/L (<40); Albumin 3.3 gm/dL (3.2-5.2); Alkaline Phosphatase 88 U/L (39-117); Bilirubin,Total < 0.2 mg/dL (0.1-1.0); Blood Urea Nitrogen 27 mg/dL (8-23); Calcium 8.7 mg/dL (8.6-10.4); Carbon Dioxide 26 mmol/L (22-30); Chloride 108 mmol/L (96-108); Globulin 3.3 gm/dL (2.2-3.7); Glomerular Filtration Rate 39; Glucose 108 mg/dL (70-105)
[2022-05-28] MEDS: FERROUS SULFATE 325 MG TABLET PO SCH (07:46)
[2022-05-28] MEDS: PANTOPRAZOLE 40 MG TABLET PO SCH (07:46)
[2022-05-28] MEDS: HEPARIN 5,000 UNIT/ML VIAL SQ SCH ×2 (08:05→20:54)
[2022-05-28] MEDS: DULoxetine 30 MG CAPSULE PO SCH (08:05)
[2022-05-28] MEDS: DOCUSATE SODIUM 100 MG CAPSULE PO SCH ×2 (08:05→20:55)
[2022-05-28] MEDS: ATORVASTATIN 10 MG TABLET PO SCH (08:06)
[2022-05-28] MEDS: CLOPIDOGREL 75 MG TABLET PO SCH (08:06)
[2022-05-28] MEDS: VITAMIN D3 25 MCG TABLET PO SCH (08:06)
[2022-05-28] MEDS: METOPROLOL SUCCINATE 50 MG TAB.XL.24H PO SCH (08:06)
[2022-05-28] MEDS: hydrALAZINE 20 MG/ML VIAL IV PRN ×2 (08:22→18:01)
[2022-05-28] MEDS: MEROPENEM 1 GM in 0.9 % SODIUM CHLORIDE 100 ML IV SCH ×2 (09:42→20:54)
[2022-05-28] MEDS ORDERED: FLEETS ADULT ENEMA PR PRN (10:42)
--- NOTE | 2022-05-28 10:42 | Internal Med Progress Note ---
SUBJECTIVE Subjective Patient information: Note initiated : 05/28/22 at 10:39 am Service Date, if different from initiated Date: [] Patient: Rich Jasmine a 72 y/o M admitted on 05/26/22 for altered LOC. Chief Complaint: [] Interval history: Mr. Jasmine is a 72 year old M history of right AKA, BPH, hypertensions with chronic kidney disease, CAD, presenting with 3-day history of general body weakness and altered mental status. According to the right, patient has been progressively getting weak to the point that she cannot care for him. She also noticed altered mental status over the same period of time. As a result, EMS was called to bring the patient to our ED for further evaluation and treatments. He was found to be desaturating on room air so oxygen mask was offered and he was up to 15 L/min of oxygen at that point in the ED. Rest of the vital signs within normal limits. CBC pending at the moment. Chemistry showing serum creatinine of 2.1 with baseline 1.8. D-dimer elevated to 2.49. Lactic acid 1.9 with repeat 0.6. Urinalysis suggesting the presence of urinary tract infections. CT of the head without contrast did not show any acute intracranial pathologies. CTA chest abdomen pelvis showing negative PE, otherwise left sided multifocal infiltrate consistent with pneumonia. No acute intra-abdominal or pelvic pathologies. 05/27: Afebrile overnight. Patient is currently on 2 and half liters of nasal cannula oxygen but desaturating at 85% so will likely be switched to oxygen mask. Blood culture growing gram-negative bacillus. WBC this morning 21.9. MRSA screening negative. [place] pending. Patient is complaining of shortness of breath, nonproductive cough, negative respiratory wheezings. He is coming of mild chest pain. He denies any subjective fever chills or diaphoresis. Continue supplemental oxygen therapy titrate to maintain SPO2 above 92%. DC vancomycin while continuing meropenem. Repeat blood culture x2 on 05/28/22. 2D echocardiogram to rule out endocarditis. Keep the patient n.p.o. status: Continue D5 LR at 100 cc/h, pending speech therapy swallowing evaluations. Pending physical therapy evaluation and treatment for placement planning. 05/28: Fever with Tmax 39.7 overnight. Patient is currently on 2L/min oxygen via nasal cannula. Both initial blood and urine cultures grew E coli. WBC trends down from 21.9 to 10.7. 2D echocardiogram did not reveal endocardial vegetations. [place] negative. Patient is c/o abdominal distention pain. Denies shortness of breath, cough, or wheezing. He denies any subjective fever chills or diaphoresis. Continue supplemental oxygen therapy titrate to maintain SPO2 above 92%. Repeat blood cultures X2 today. Continue Constitutional Vitals: Vital Signs Temp Pulse Resp BP Pulse Ox O2 Del Method O2 Flow Rate 37.4 C H 89 24 H 123/72 93 2 05/28/22 08:01 05/28/22 10:10 05/28/22 10:10 05/28/22 10:10 05/28/22 10:10 05/28/22 10:10 05/28/22 10:10 Period Temp Pulse Resp BP Sys/Esposito Pulse Ox O2 Del Method O2 Flow Rate Last 24 Hr 37.1 C-39.7 C 82-113 15-24 123-218/72-108 92-100 Oxymask-Room Air 0-2 Intake and Output 05/27/22 05/28/22 05/28/22 21:59 05:59 13:59 Intake Total 1785 1165 437 Output Total 725 575 Balance 1060 590 437 Weight 68.311 kg Intake & Output: Intake & Output 05/27/22 05/28/22 05/28/22 21:59 05:59 13:59 Intake Total 1785 1165 437 Output Total 725 575 Balance 1060 590 437 Weight 68.311 kg Intake: Nourishment/Supplement quantity 257 (ml) IV 1065 1165 Dextrose 5%-Lactated Ringers 1, 1000 1000 000 ml @ 100 mls/hr IV .Q10H [facility] Rx#:[id number] Merrem 1 gm In Sodium Chloride 100 0.9% 100 ml @ 100 mls/hr IV Q12H [facility] Rx#:[id number] Oral 720 180 Output: Urine Catheter Amount 725 575 Other: Meal Dinner Breakfast Percent of Meal Consumed 100% 75% Feeding Ability Total Assistance Total Assistance Nourishment/Supplement name Magic Cup Urine Appearance Cloudy Clear Sediment Uretheral (Workman) Clear Urine Color Yellow Bright Yellow Uretheral (Workman) Bright Yellow Urine Odor Normal Head Head exam: Present atraumatic and normal inspection Eye Eye exam: Present normal appearance ENT ENT exam: Present mucous membranes moist, normal exam and normal external ear exam Additional comments: Nasal cannula in place Neck Neck exam: Present normal inspection Respiratory Respiratory exam: Present decreased breath sounds Cardiovascular Cardiovascular exam: Present normal rate and rhythm GI/Abdominal GI/Abdominal exam: Present normal bowel sounds Back Exam Back exam: Present normal inspection Neurological Exam Neurological exam: Present alert and altered; Absent oriented X3 Additional comments: oriented X2 to person and place Skin Skin exam: Present intact and warm OBJ DATA Labs CBC & Chem 7: 05/28/22 06:00 05/28/22 06:00 Labs: Abnormal Lab Results 05/28/22 05/28/22 05/27/22 06:00 06:00 05:28 WBC RBC 3.78 L Hgb 10.8 L Hct 35.0 L POC Hct MCHC 30.9 L RDW 15.9 H Plt Count 485 H MPV Immature Gran % (Auto) 0.6 H Neut % (Auto) 83.1 H Lymph % (Auto) 7.8 L Lymph # (Auto) 0.84 L Cecil # (Auto) Seg Neutrophils % Lymphocytes % Immature Gran # 0.06 H Absolute Neutrophils 8.93 H Platelet Estimate D-Dimer POC VBG pO2 POC Venous O2 Sat POC BUN BUN 27 H 32 H Creatinine 1.7 H 1.9 H POC Creatinine Glucose 108 H 130 H POC Glucose POC WB Ioniz Calcium C-Reactive Protein Globulin Procalcitonin Urine Appearance Urine Protein Urine Ketones Urine Occult Blood Ur Leukocyte Esterase Urine RBC Urine WBC Urine Bacteria Cellular Casts Hyaline Casts Granular Casts Urine Mucus 05/27/22 05/26/22 05/26/22 05:28 19:32 15:05 WBC 21.9 H RBC 4.30 L Hgb 12.0 L Hct 38.6 L POC Hct MCHC RDW 15.7 H Plt Count 542 H MPV 8.7 L Immature Gran % (Auto) Neut % (Auto) 87.3 H Lymph % (Auto) 4.3 L Lymph # (Auto) 0.95 L Cecil # (Auto) 1.71 H Seg Neutrophils % Lymphocytes % Immature Gran # 0.11 H Absolute Neutrophils 19.13 H Platelet Estimate D-Dimer POC VBG pO2 55 H POC Venous O2 Sat 86.0 H POC BUN BUN Creatinine POC Creatinine Glucose POC Glucose POC WB Ioniz Calcium C-Reactive Protein Globulin Procalcitonin Urine Appearance Cloudy A Urine Protein 100 A Urine Ketones 5 A Urine Occult Blood >=1.0 A Ur Leukocyte Esterase 250 A Urine RBC 103 H Urine WBC 170 H Urine Bacteria Many A Cellular Casts 3 H Hyaline Casts 3 H Granular Casts 4 H Urine Mucus Few A 05/26/22 05/26/22 05/26/22 12:43 12:37 12:37 WBC RBC Hgb Hct POC Hct MCHC RDW Plt Count MPV Immature Gran % (Auto) Neut % (Auto) Lymph % (Auto) Lymph # (Auto) Cecil # (Auto) Seg Neutrophils % Lymphocytes % Immature Gran # Absolute Neutrophils Platelet Estimate D-Dimer 2.49 H POC VBG pO2 POC Venous O2 Sat POC BUN BUN Creatinine POC Creatinine Glucose POC Glucose POC WB Ioniz Calcium C-Reactive Protein 12.10 H Globulin Procalcitonin 1.06 H Urine Appearance Urine Protein Urine Ketones Urine Occult Blood Ur Leukocyte Esterase Urine RBC Urine WBC Urine Bacteria Cellular Casts Hyaline Casts Granular Casts Urine Mucus 05/26/22 05/26/22 05/26/22 12:37 12:37 12:26 WBC 20.1 H RBC 4.41 L Hgb 12.2 L Hct 39.6 L POC Hct 40.0 L MCHC 30.8 L RDW 15.6 H Plt Count 554 H MPV Immature Gran % (Auto) Neut % (Auto) Lymph % (Auto) Lymph # (Auto) Cecil # (Auto) Seg Neutrophils % 82 H Lymphocytes % 7 L Immature Gran # Absolute Neutrophils Platelet Estimate Increased A D-Dimer POC VBG pO2 POC Venous O2 Sat POC BUN 33 H BUN 25 H Creatinine 2.1 H POC Creatinine 2.3 H Glucose 141 H POC Glucose 142 H POC WB Ioniz Calcium 1.14 L C-Reactive Protein Globulin 3.9 H Procalcitonin Urine Appearance Urine Protein Urine Ketones Urine Occult Blood Ur Leukocyte Esterase Urine RBC Urine WBC Urine Bacteria Cellular Casts Hyaline Casts Granular Casts Urine Mucus Meds: Medications Acetaminophen (Acetaminophen 325 Mg Tablet) 650 mg PO Q6HP PRN; Protocol PRN Reason: Per Pain Protocol/Fever > 101 Albuterol/Ipratropium (Ipratropium/Albuterol 3 Ml Ampul.Neb) 3 ml NEB Q4HRT PRN PRN Reason: Wheezing Amitriptyline HCl (Amitriptyline 25 Mg Tablet) 50 mg PO HS [facility] Last Admin: 10/31/22 20:30 Dose: 50 mg Atorvastatin Calcium (Atorvastatin 10 Mg Tablet) 10 mg PO QDAY [facility] Last Admin: 05/28/22 08:06 Dose: 10 mg Clopidogrel Bisulfate (Clopidogrel 75 Mg Tablet) 75 mg PO QDAY [facility] Last Admin: 05/28/22 08:06 Dose: 75 mg Docusate Sodium (Docusate Sodium 100 Mg Capsule) 100 mg PO BID [facility] Last Admin: 05/28/22 08:05 Dose: 100 mg Doxazosin Mesylate (Doxazosin 4 Mg Tablet) 4 mg PO QHS [facility] Last Admin: 05/27/22 20:30 Dose: 4 mg Duloxetine HCl (Duloxetine 30 Mg Capsule) 30 mg PO QDAY [facility] Last Admin: 05/28/22 08:05 Dose: 30 mg Ferrous Sulfate (Ferrous Sulfate 325 Mg Tablet) [facility] Last Admin: 05/28/22 07:46 Dose: 325 mg Heparin Sodium (Porcine) (Heparin 5,000 Unit/Ml Vial) 5,000 unit SQ Q12 [facility] Last Admin: 05/28/22 08:05 Dose: 5,000 unit Hydralazine HCl (Hydralazine 20 Mg/Ml Vial) 10 mg IV Q4HP PRN PRN Reason: Hypertension Last Admin: 05/28/22 08:22 Dose: 10 mg Dextrose/Lactated Ringer's (Dextrose 5%-Lactated Ringers) 1,000 mls @ 100 mls/hr IV .Q10H [facility] Last Admin: 05/28/22 05:37 Dose: 100 mls/hr Meropenem 1 gm/ Sodium (Chloride) 100 mls @ 100 mls/hr IV Q12H [facility] Last Admin: 05/28/22 09:42 Dose: 100 mls/hr Acetaminophen (Ofirmev) 650 mg in 65 mls @ 130 mls/hr IV Q6HP PRN; Protocol PRN Reason: PAIN/FEVER > 101 Last Infusion: 05/28/22 05:08 Dose: Infused Lactulose (Lactulose 20 Gm/30 Ml Oral.Sepideh) 10 gm PO DAILYP PRN PRN Reason: Constipation Metoprolol Succinate (Metoprolol Succinate 50 Mg Tab.Xl.24h) 50 mg PO QDAY [facility] Last Admin: 05/28/22 08:06 Dose: 50 mg Ondansetron HCl (Ondansetron 4 Mg/2 Ml Vial) 4 mg IV Q4HP PRN; Protocol PRN Reason: Nausea And Vomiting Pantoprazole Sodium (Pantoprazole 40 Mg Tablet) 40 mg PO ACB [facility] Last Admin: 05/28/22 07:46 Dose: 40 mg Paliperidone 3 Mg Tablet Extended Release 24hr 1 dose PO HS [facility] Last Admin: 05/27/22 20:30 Dose: 1 dose Senna (Sennosides 1 Tablet) 2 tab PO HSP PRN PRN Reason: Constipation Sodium Chloride (0.9 % Sodium Chloride 10 Ml Syringe) 10 ml IV Q8 [facility] Last Admin: 05/28/22 05:36 Dose: 10 ml Vitamin D (Vitamin D3 25 Mcg Tablet) 50 mcg PO DAILY [facility] Last Admin: 05/28/22 08:06 Dose: 50 mcg A/P Assessment and plan (1) Pneumonia involving left lung: Status: Acute Qualifiers: Lung location: unspecified part of lung Pneumonia type: due to unspecified organism Qualified Code(s): J18.9 - Pneumonia, unspecified organism (2) Acute UTI: Status: Acute (3) CAD (coronary artery disease): Status: Acute (4) Renal failure (ARF), acute on chronic: Status: Acute (5) Benign hypertension with CKD (chronic kidney disease) stage III: Status: Chronic Comment: [place] urinalysis Unremarkable renal ultrasound Relatively stable GFR (6) BPH associated with nocturia: Status: Chronic Comment: Nocturia x2 Sleeps with a urinal on his bedside stand (7) Acute respiratory failure with hypoxia: Status: Acute (8) Bacteremia due to Gram-negative bacteria: Status: Acute Narrative A/P Narrative: Assessment and Plans: 1. Left sided pneumonia with acute respiratory failure with hypoxia: Inpatient PCU NPO with LR@100cc/hr Speech therapy swallowing evaluation Serial lactic acid 1.9-->0.6 Procalcitonin 1.06 Blood culture, E coli, see #6 Sputum culture, E coli MRSA screening negative [place] PCR negative cbc w/ auto diff in the morning to trend WBC Meropenem (penicillin allergy) Supplemental oxygen 2. UTI: Serial lactic acid 1.9-->0.6 Procalcitonin 1.06 Blood culture, E coli, see #6 Urine culture, E coli cbc w/ auto diff in the morning to trend WBC Meropenem (penicillin allergy) LR@100cc/hr 3. Acute kidney injury with hypertensive nephropathy/chronic kidney disease: Avoid nephrotoxic agents D5LR@100cc/hr CMP in the morning to trend kidney functions Metoprolol ER Doxazosin 4. h/o CAD: Plavix statin Metoprolol ER 5. BPH: Doxazosin 6. E coli bacteremia: Repeat blood cultures X2 on 05/28/22 2D echocardiogram did not reveal endocardial vegetations cbc w/ auto diff in the morning to trend WBC Meropenem GI ppx: PPI DVT ppx: Heparin Code status: DNR Prognosis: guarded Disposition: inpatient PCU; PT Time Spent With Patient Time: Total time spent is greater than 50% in coordination of care (as documented) at patient's floor/unit and/or counseling patient: Total time spent with greater than 50% in coordination of care (as documented) at patient's floor/unit and/or counseling patient:: 35 - 50 minutes QUALITY VTE Deep Vein Thrombosis/Pulmonary Embolism Present on Admission: No
--- NOTE | 2022-05-28 15:03 | Internal Med Progress Note ---
SUBJECTIVE Subjective Patient information: Note initiated : 05/28/22 at 2:55 pm Service Date, if different from initiated Date: [] Patient: Rich Jasmine a 72 y/o M admitted on 05/26/22 for altered LOC. Chief Complaint: [] Interval history: Mr. Jasmine is a 72 year old M history of right AKA, BPH, hypertensions with chronic kidney disease, CAD, presenting with 3-day history of general body weakness and altered mental status. According to the right, patient has been progressively getting weak to the point that she cannot care for him. She also noticed altered mental status over the same period of time. As a result, EMS was called to bring the patient to our ED for further evaluation and treatments. He was found to be desaturating on room air so oxygen mask was offered and he was up to 15 L/min of oxygen at that point in the ED. Rest of the vital signs within normal limits. CBC pending at the moment. Chemistry showing serum creatinine of 2.1 with baseline 1.8. D-dimer elevated to 2.49. Lactic acid 1.9 with repeat 0.6. Urinalysis suggesting the presence of urinary tract infections. CT of the head without contrast did not show any acute intracranial pathologies. CTA chest abdomen pelvis showing negative PE, otherwise left sided multifocal infiltrate consistent with pneumonia. No acute intra-abdominal or pelvic pathologies. 05/27: Afebrile overnight. Patient is currently on 2 and half liters of nasal cannula oxygen but desaturating at 85% so will likely be switched to oxygen mask. Blood culture growing gram-negative bacillus. WBC this morning 21.9. MRSA screening negative. [place] pending. Patient is complaining of shortness of breath, nonproductive cough, negative respiratory wheezings. He is coming of mild chest pain. He denies any subjective fever chills or diaphoresis. Continue supplemental oxygen therapy titrate to maintain SPO2 above 92%. DC vancomycin while continuing meropenem. Repeat blood culture x2 on 05/28/22. 2D echocardiogram to rule out endocarditis. Keep the patient n.p.o. status: Continue D5 LR at 100 cc/h, pending speech therapy swallowing evaluations. Pending physical therapy evaluation and treatment for placement planning. 05/28: Fever with Tmax 39.7 overnight. Patient is currently on 2L/min oxygen via nasal cannula. Both initial blood and urine cultures grew E coli. WBC trends down from 21.9 to 10.7. 2D echocardiogram did not reveal endocardial vegetations. [place] negative. Patient is c/o abdominal distention pain. Denies shortness of breath, cough, or wheezing. He denies any subjective fever chills or diaphoresis. Continue supplemental oxygen therapy titrate to maintain SPO2 above 92%. Repeat blood cultures X2 today. Continue Constitutional Vitals: Vital Signs Temp Pulse Resp BP Pulse Ox O2 Del Method O2 Flow Rate 101.8 F H 93 H 22 137/65 96 2 05/28/22 14:01 05/28/22 14:01 05/28/22 14:01 05/28/22 14:01 05/28/22 14:01 05/28/22 14:01 05/28/22 14:01 Period Temp Pulse Resp BP Sys/Esposito Pulse Ox O2 Del Method O2 Flow Rate Last 24 Hr 98.8 F-103.4 F 82-113 16-24 123-218/65-108 92-96 Nasal Ca nnula-Room Air 2-2 Intake and Output 05/28/22 05/28/22 05/28/22 05:59 13:59 21:59 Intake Total 1165 602 Output Total 575 600 Balance 590 2 Intake & Output: Intake & Output 05/28/22 05/28/22 05/28/22 05:59 13:59 21:59 Intake Total 1165 602 Output Total 575 600 Balance 590 2 Intake: Nourishment/Supplement quantity 257 (ml) IV 1165 165 Dextrose 5%-Lactated Ringers 1, 1000 000 ml @ 100 mls/hr IV .Q10H [facility] Rx#:[id number] Merrem 1 gm In Sodium Chloride 100 100 0.9% 100 ml @ 100 mls/hr IV Q12H [facility] Rx#:[id number] Oral 180 Output: Urine Catheter Amount 575 600 Other: Meal Lunch Percent of Meal Consumed Aspiration Feeding Ability Total Assistance Nourishment/Supplement name Magic Cup Urine Appearance Clear Clear Uretheral ([place]) Clear Urine Color Bright Yellow Bright Yellow Uretheral (Workman) Bright Yellow Urine Odor Normal Exam: General: Alert, Awake, No acute Distress Eyes/N/T: EOMI, Head/Neck: neck supple, CV: RRR, No murmurs, Pulm: Decreased breath sounds b/l, no wheezing/rhonchi/rales Abd: soft, nontender, +BS x4 Ext: no clubbing/cyanosis/edema Neuro: Alert, no focal deficits, moves all extremities, Skin: warm/dry OBJ DATA Labs CBC & Chem 7: 05/29/22 05:26 05/29/22 05:25 Labs: Abnormal Lab Results 05/28/22 05/28/22 05/27/22 06:00 06:00 05:28 WBC RBC 3.78 L Hgb 10.8 L Hct 35.0 L POC Hct MCHC 30.9 L RDW 15.9 H Plt Count 485 H MPV Immature Gran % (Auto) 0.6 H Neut % (Auto) 83.1 H Lymph % (Auto) 7.8 L Lymph # (Auto) 0.84 L [place] # (Auto) Seg Neutrophils % Lymphocytes % Immature Gran # 0.06 H Absolute Neutrophils 8.93 H Platelet Estimate D-Dimer POC VBG pO2 POC Venous O2 Sat POC BUN BUN 27 H 32 H Creatinine 1.7 H 1.9 H POC Creatinine Glucose 108 H 130 H POC Glucose POC WB Ioniz Calcium C-Reactive Protein Globulin Procalcitonin Urine Appearance Urine Protein Urine Ketones Urine Occult Blood Ur Leukocyte Esterase Urine RBC Urine WBC Urine Bacteria Cellular Casts Hyaline Casts Granular Casts Urine Mucus 05/27/22 05/26/22 05/26/22 05:28 19:32 15:05 WBC 21.9 H RBC 4.30 L Hgb 12.0 L Hct 38.6 L POC Hct MCHC RDW 15.7 H Plt Count 542 H MPV 8.7 L Immature Gran % (Auto) Neut % (Auto) 87.3 H Lymph % (Auto) 4.3 L Lymph # (Auto) 0.95 L [place] # (Auto) 1.71 H Seg Neutrophils % Lymphocytes % Immature Gran # 0.11 H Absolute Neutrophils 19.13 H Platelet Estimate D-Dimer POC VBG pO2 55 H POC Venous O2 Sat 86.0 H POC BUN BUN Creatinine POC Creatinine Glucose POC Glucose POC WB Ioniz Calcium C-Reactive Protein Globulin Procalcitonin Urine Appearance Cloudy A Urine Protein 100 A Urine Ketones 5 A Urine Occult Blood >=1.0 A Ur Leukocyte Esterase 250 A Urine RBC 103 H Urine WBC 170 H Urine Bacteria Many A Cellular Casts 3 H Hyaline Casts 3 H Granular Casts 4 H Urine Mucus Few A 05/26/22 05/26/22 05/26/22 12:43 12:37 12:37 WBC RBC Hgb Hct POC Hct MCHC RDW Plt Count MPV Immature Gran % (Auto) Neut % (Auto) Lymph % (Auto) Lymph # (Auto) [place] # (Auto) Seg Neutrophils % Lymphocytes % Immature Gran # Absolute Neutrophils Platelet Estimate D-Dimer 2.49 H POC VBG pO2 POC Venous O2 Sat POC BUN BUN Creatinine POC Creatinine Glucose POC Glucose POC WB Ioniz Calcium C-Reactive Protein 12.10 H Globulin Procalcitonin 1.06 H Urine Appearance Urine Protein Urine Ketones Urine Occult Blood Ur Leukocyte Esterase Urine RBC Urine WBC Urine Bacteria Cellular Casts Hyaline Casts Granular Casts Urine Mucus 05/26/22 05/26/22 05/26/22 12:37 12:37 12:26 WBC 20.1 H RBC 4.41 L Hgb 12.2 L Hct 39.6 L POC Hct 40.0 L MCHC 30.8 L RDW 15.6 H Plt Count 554 H MPV Immature Gran % (Auto) Neut % (Auto) Lymph % (Auto) Lymph # (Auto) [place] # (Auto) Seg Neutrophils % 82 H Lymphocytes % 7 L Immature Gran # Absolute Neutrophils Platelet Estimate Increased A D-Dimer POC VBG pO2 POC Venous O2 Sat POC BUN 33 H BUN 25 H Creatinine 2.1 H POC Creatinine 2.3 H Glucose 141 H POC Glucose 142 H POC WB Ioniz Calcium 1.14 L C-Reactive Protein Globulin 3.9 H Procalcitonin Urine Appearance Urine Protein Urine Ketones Urine Occult Blood Ur Leukocyte Esterase Urine RBC Urine WBC Urine Bacteria Cellular Casts Hyaline Casts Granular Casts Urine Mucus Meds: Medications Acetaminophen (Acetaminophen 325 Mg Tablet) 650 mg PO Q6HP PRN; Protocol PRN Reason: Per Pain Protocol/Fever > 101 Albuterol/Ipratropium (Ipratropium/Albuterol 3 Ml Ampul.Neb) 3 ml NEB Q4HRT PRN PRN Reason: Wheezing Amitriptyline HCl (Amitriptyline 25 Mg Tablet) 50 mg PO HS [facility] Last Admin: 05/27/22 20:30 Dose: 50 mg Atorvastatin Calcium (Atorvastatin 10 Mg Tablet) 10 mg PO QDAY [facility] Last Admin: 05/28/22 08:06 Dose: 10 mg Clopidogrel Bisulfate (Clopidogrel 75 Mg Tablet) 75 mg PO QDAY [facility] Last Admin: 05/28/22 08:06 Dose: 75 mg Docusate Sodium (Docusate Sodium 100 Mg Capsule) 100 mg PO BID [facility] Last Admin: 05/28/22 08:05 Dose: 100 mg Doxazosin Mesylate (Doxazosin 4 Mg Tablet) 4 mg PO QHS [facility] Last Admin: 05/27/22 20:30 Dose: 4 mg Duloxetine HCl (Duloxetine 30 Mg Capsule) 30 mg PO QDAY [facility] Last Admin: 05/28/22 08:05 Dose: 30 mg Ferrous Sulfate (Ferrous Sulfate 325 Mg Tablet) 325 mg PO [facility] Last Admin: 05/28/22 07:46 Dose: 325 mg Heparin Sodium (Porcine) (Heparin 5,000 Unit/Ml Vial) 5,000 unit SQ Q12 [facility] Last Admin: 05/28/22 08:05 Dose: 5,000 unit Hydralazine HCl (Hydralazine 20 Mg/Ml Vial) 10 mg IV Q4HP PRN PRN Reason: Hypertension Last Admin: 05/28/22 08:22 Dose: 10 mg Dextrose/Lactated Ringer's (Dextrose 5%-Lactated Ringers) 1,000 mls @ 100 mls/hr IV .Q10H [facility] Last Admin: 05/28/22 14:24 Dose: Not Given Meropenem 1 gm/ Sodium (Chloride) 100 mls @ 100 mls/hr IV Q12H [facility] Last Infusion: 05/28/22 10:50 Dose: Infused Acetaminophen (Ofirmev) 650 mg in 65 mls @ 130 mls/hr IV Q6HP PRN; Protocol PRN Reason: PAIN/FEVER > 101 Last Infusion: 05/28/22 12:48 Dose: Infused Lactulose (Lactulose 20 Gm/30 Ml Oral.Sepideh) 10 gm PO DAILYP PRN PRN Reason: Constipation Metoprolol Succinate (Metoprolol Succinate 50 Mg Tab.Xl.24h) 50 mg PO QDAY [facility] Last Admin: 05/28/22 08:06 Dose: 50 mg Ondansetron HCl (Ondansetron 4 Mg/2 Ml Vial) 4 mg IV Q4HP PRN; Protocol PRN Reason: Nausea And Vomiting Pantoprazole Sodium (Pantoprazole 40 Mg Tablet) 40 mg PO ACB [facility] Last Admin: 05/28/22 07:46 Dose: 40 mg Paliperidone 3 Mg Tablet Extended Release 24hr 1 dose PO HS [facility] Last Admin: 05/27/22 20:30 Dose: 1 dose Senna (Sennosides 1 Tablet) 2 tab PO HSP PRN PRN Reason: Constipation Sodium Biphosphate/Sodium Phosphate (Fleets Adult Enema) 1 dose MO DAILYP PRN PRN Reason: Constipation Sodium Chloride (0.9 % Sodium Chloride 10 Ml Syringe) 10 ml IV Q8 [facility] Last Admin: 05/28/22 14:24 Dose: 10 ml Vitamin D (Vitamin D3 25 Mcg Tablet) 50 mcg PO DAILY [facility] Last Admin: 05/28/22 08:06 Dose: 50 mcg A/P Narrative A/P Narrative: Assessment: *PNA, likely aspiration: -febrile last night, suspect aspiration yesterday *Oropharyngeal dysphagia, mod-sev: *Acute hypoxic respiratory failure: 2/2 above -on 0-1L NC *UTI (E. coli): *Bacteremia (E. coli): *RADHA on CKD IIIb: slowly improving appears to be at baseline *HYpernatremia *h/o CAD: P: -NPO, LR IVF to d5w -Speech therapy swallowing evaluation with barium study -cxr -Meropenem (penicillin allergy), 7-14 days abx -Supplemental oxygen prn -Avoid nephrotoxic agents -cont BB, -cont ASA/Plavix/Statin -ppx: Heparin Code status: DNR Time Spent With Patient Time: Total time spent is greater than 50% in coordination of care (as documented) at patient's floor/unit and/or counseling patient: Total time spent with greater than 50% in coordination of care (as documented) at patient's floor/unit and/or counseling patient:: 35 - 50 minutes QUALITY VTE Deep Vein Thrombosis/Pulmonary Embolism Present on Admission: No
[2022-05-28] MEDS: PALIPERIDONE 3 MG PO SCH (20:55)
[2022-05-28] MEDS: AMITRIPTYLINE 25 MG TABLET PO SCH (20:55)
[2022-05-28] MEDS: DOXAZOSIN 4 MG TABLET PO SCH (20:55)
[2022-05-29] MEDS: 0.9 % SODIUM CHLORIDE 10 ML SYRINGE IV SCH ×4 (00:25→21:38)
[2022-05-29] MEDS: ACETAMINOPHEN 650 MG/65 ML BAG IV PRN (00:30)
[2022-05-29] MEDS: DEXTROSE 5%-LR 1,000 ML IV SCH (05:55)
[2022-05-29 06:40] LABS: Basophils # (Auto) 0.03 K/mcL (0.00-0.30); Basophils % (Auto) 0.4 % (0.0-2.0); Eosinophils # (Auto) 0.19 K/mcL (0.00-0.70); Eosinophils % (Auto) 2.4 % (0.0-7.0); Hematocrit 37.2 % (40.1-51.0); Hemoglobin 11.4 g/dL (13.7-17.5); Lymphocytes # (Auto) 1.03 K/mcL (1.50-4.80); Mean Cell Volume 90.5 fL (80.0-100.0); Mean Corpuscular HGB Conc 30.6 g/dL (31.0-36.0); Mean Platelet Volume 8.8 fL (8.8-12.5); Monocytes # (Auto) 0.71 K/mcL (0.10-0.90); Monocytes % (Auto) 8.9 % (1.0-12.0); Neutrophils % (Auto) 74.5 % (38.0-78.0); Platelet Count 473 K/mcL (140-440); RBC 4.11 M/mcL (4.63-6.08); Red Cell Distribution Width 15.9 % (11.5-14.5); WBC 7.9 K/mcL (4.5-11.0)
[2022-05-29 06:41] LABS: ALT/SGPT 6 U/L (<40); AST/SGOT 13 U/L (<40); Albumin/Globulin Ratio 0.9 (1.0-2.3); Alkaline Phosphatase 83 U/L (39-117); Bilirubin,Direct < 0.2 mg/dL (0-0.3); Bilirubin,Total 0.2 mg/dL (0.1-1.0); Blood Urea Nitrogen 26 mg/dL (8-23); Carbon Dioxide 27 mmol/L (22-30); Chloride 111 mmol/L (96-108); Globulin 3.5 gm/dL (2.2-3.7); Glomerular Filtration Rate 46; Glucose 112 mg/dL (70-105); Lactate Dehydrogenase 177 U/L (135-225); Phosphorous 2.9 mg/dL (2.5-4.5); Triglycerides 140 mg/dL (<150); Uric Acid 7.1 mg/dL (2.5-8.0)
[2022-05-29] MEDS: hydrALAZINE 20 MG/ML VIAL IV PRN ×3 (06:48→23:24)
[2022-05-29] MEDS ORDERED: DEXTROSE 5% IN WATER 1,000 ML IV SCH ×2 (08:15→11:10)
--- NOTE | 2022-05-29 08:15 | Internal Med Progress Note ---
SUBJECTIVE Subjective Patient information: Note initiated : 05/29/22 at 8:15 am Service Date, if different from initiated Date: [] Patient: Rich Jasmine a 72 y/o M admitted on 05/26/22 for altered LOC-PNA,UTI. Chief Complaint: [] Interval history: Mr. Jasmine is a 72 year old M history of right AKA, BPH, hypertensions with chronic kidney disease, CAD, presenting with 3-day history of general body weakness and altered mental status. According to the right, patient has been progressively getting weak to the point that she cannot care for him. She also noticed altered mental status over the same period of time. As a result, EMS was called to bring the patient to our ED for further evaluation and treatments. He was found to be desaturating on room air so oxygen mask was offered and he was up to 15 L/min of oxygen at that point in the ED. Rest of the vital signs within normal limits. CBC pending at the moment. Chemistry showing serum creatinine of 2.1 with baseline 1.8. D-dimer elevated to 2.49. Lactic acid 1.9 with repeat 0.6. Urinalysis suggesting the presence of urinary tract infections. CT of the head without contrast did not show any acute intracranial pathologies. CTA chest abdomen pelvis showing negative PE, otherwi se left sided multifocal infiltrate consistent with pneumonia. No acute intra- abdominal or pelvic pathologies. 05/27: Afebrile overnight. Patient is currently on 2 and half liters of nasal cannula oxygen but desaturating at 85% so will likely be switched to oxygen mask. Blood culture growing gram-negative bacillus. WBC this morning 21.9. MRSA screening negative. [place] pending. Patient is complaining of shortness of breath, nonproductive cough, negative respiratory wheezings. He is coming of mild chest pain. He denies any subjective fever chills or diaphoresis. Continue supplemental oxygen therapy titrate to maintain SPO2 above 92%. DC vancomycin while continuing meropenem. Repeat blood culture x2 on 05/28/22. 2D echocardiogram to rule out endocarditis. Keep the patient n.p.o. status: Continue D5 LR at 100 cc/h, pending speech therapy swallowing evaluations. Pending physical therapy evaluation and treatment for placement planning. 05/28: Fever with Tmax 39.7 overnight. Patient is currently on 2L/min oxygen via nasal cannula. Both initial blood and urine cultures grew E coli. WBC trends down from 21.9 to 10.7. 2D echocardiogram did not reveal endocardial vegetations. [place] negative. Patient is c/o abdominal distention pain. Denies shortness of breath, cough, or wheezing. He denies any subjective fever chills or diaphoresis. 05/29 Patient started spiking fevers yesterday and the day before. Concern for aspiration. Patient awaiting barium's eval with speech today. Patient denies any new complaints or overnight events. Blood cultures drawn yesterday. White blood cell count normal today. Hyponatremic on labs today. D5 water started. Creatinine looks low but better than yesterday. Blood pressures been elevated. IV as needed's currently while NPO. Review of Systems: denies headache/fever/chills/nausea/vomiting/chest or abdominal pain/cough/dyspn ea/diarrhea. Otherwise see above. Constitutional Vitals: Vital Signs Temp Pulse Resp BP Pulse Ox O2 Del Method O2 Flow Rate 100.0 F H 87 18 213/91 96 1 05/29/22 04:01 05/29/22 06:07 05/29/22 06:07 05/29/22 06:07 05/29/22 06:07 05/29/22 06:07 05/29/22 06:07 Period Temp Pulse Resp BP Sys/Esposito Pulse Ox O2 Del Method O2 Flow Rate Last 24 Hr 100.0 F-102.7 F 70-110 16-24 123-218/65-117 91-99 Nasal Cannula-Room Air 0-2 Intake and Output 05/28/22 05/29/22 05/29/22 21:59 05:59 13:59 Intake Total 1469 755 Output Total 850 475 700 Balance 619 280 -700 Weight 68.311 kg Intake & Output: Intake & Output 05/28/22 05/29/22 05/29/22 21:59 05:59 13:59 Intake Total 1469 755 Output Total 850 475 700 Balance 619 280 -700 Weight 68.311 kg Intake: IV 1469 755 Dextrose 5%-Lactated Ringers 1, 1404 590 000 ml @ 75 mls/hr IV .[id number] [facility] Rx#:[id number] Merrem 1 gm In Sodium Chloride 100 0.9% 100 ml @ 100 mls/hr IV Q12H [facility] Rx#:[id number] Oral 0 Output: Urine Catheter Amount 850 475 700 Other: Urine Appearance Sediment Clear Clear Uretheral (Workman) Clear Urine Color Yellow Bright Yellow Bright Yellow Pale Uretheral (Workman) Bright Yellow Urine Odor Normal Normal Stool Size Small Stool Color Brown Stool Consistency Soft Formed # Bowel Movements 1 # of times incontinent of 1 Bowels Exam: General: Alert, Awake, No acute Distress Eyes/N/T: EOMI, Head/Neck: neck supple, CV: RRR, No murmurs, Pulm: Decreased breath sounds b/l, no wheezing/rhonchi/rales Abd: soft, nontender, +BS x4 Ext: no clubbing/cyanosis/edema Neuro: Alert, no focal deficits, moves all extremities, Skin: warm/dry OBJ DATA Labs CBC & Chem 7: 05/29/22 05:26 05/29/22 05:25 Labs: Abnormal Lab Results 05/29/22 05/29/22 05/28/22 05:26 05:25 06:00 WBC RBC 4.11 L Hgb 11.4 L Hct 37.2 L POC Hct MCHC 30.6 L RDW 15.9 H Plt Count 473 H MPV Immature Gran % (Auto) 0.8 H Neut % (Auto) Lymph % (Auto) 13.0 L Lymph # (Auto) 1.03 L [place] # (Auto) Seg Neutrophils % Lymphocytes % Immature Gran # 0.06 H Absolute Neutrophils Platelet Estimate D-Dimer POC VBG pO2 POC Venous O2 Sat Sodium 147 H Chloride 111 H POC BUN BUN 26 H 27 H Creatinine 1.5 H 1.7 H POC Creatinine Glucose 112 H 108 H POC Glucose POC WB Ioniz Calcium C-Reactive Protein Albumin 3.0 L Globulin Albumin/Globulin Ratio 0.9 L Procalcitonin Urine Appearance Urine Protein Urine Ketones Urine Occult Blood Ur Leukocyte Esterase Urine RBC Urine WBC Urine Bacteria Cellular Casts Hyaline Casts Granular Casts Urine Mucus 05/28/22 05/27/22 05/27/22 06:00 05:28 05:28 WBC 21.9 H RBC 3.78 L 4.30 L Hgb 10.8 L 12.0 L Hct 35.0 L 38.6 L POC Hct MCHC 30.9 L RDW 15.9 H 15.7 H Plt Count 485 H 542 H MPV 8.7 L Immature Gran % (Auto) 0.6 H Neut % (Auto) 83.1 H 87.3 H Lymph % (Auto) 7.8 L 4.3 L Lymph # (Auto) 0.84 L 0.95 L [place] # (Auto) 1.71 H Seg Neutrophils % Lymphocytes % Immature Gran # 0.06 H 0.11 H Absolute Neutrophils 8.93 H 19.13 H Platelet Estimate D-Dimer POC VBG pO2 POC Venous O2 Sat Sodium Chloride POC BUN BUN 32 H Creatinine 1.9 H POC Creatinine Glucose 130 H POC Glucose POC WB Ioniz Calcium C-Reactive Protein Albumin Globulin Albumin/Globulin Ratio Procalcitonin Urine Appearance Urine Protein Urine Ketones Urine Occult Blood Ur Leukocyte Esterase Urine RBC Urine WBC Urine Bacteria Cellular Casts Hyaline Casts Granular Casts Urine Mucus 05/26/22 05/26/22 05/26/22 19:32 15:05 12:43 WBC RBC Hgb Hct POC Hct MCHC RDW Plt Count MPV Immature Gran % (Auto) Neut % (Auto) Lymph % (Auto) Lymph # (Auto) [place] # (Auto) Seg Neutrophils % Lymphocytes % Immature Gran # Absolute Neutrophils Platelet Estimate D-Dimer POC VBG pO2 55 H POC Venous O2 Sat 86.0 H Sodium Chloride POC BUN BUN Creatinine POC Creatinine Glucose POC Glucose POC WB Ioniz Calcium C-Reactive Protein 12.10 H Albumin Globulin Albumin/Globulin Ratio Procalcitonin Urine Appearance Cloudy A Urine Protein 100 A Urine Ketones 5 A Urine Occult Blood >=1.0 A Ur Leukocyte Esterase 250 A Urine RBC 103 H Urine WBC 170 H Urine Bacteria Many A Cellular Casts 3 H Hyaline Casts 3 H Granular Casts 4 H Urine Mucus Few A 05/26/22 05/26/22 05/26/22 12:37 12:37 12:37 WBC RBC Hgb Hct POC Hct MCHC RDW Plt Count MPV Immature Gran % (Auto) Neut % (Auto) Lymph % (Auto) Lymph # (Auto) [place] # (Auto) Seg Neutrophils % Lymphocytes % Immature Gran # Absolute Neutrophils Platelet Estimate D-Dimer 2.49 H POC VBG pO2 POC Venous O2 Sat Sodium Chloride POC BUN BUN 25 H Creatinine 2.1 H POC Creatinine Glucose 141 H POC Glucose POC WB Ioniz Calcium C-Reactive Protein Albumin Globulin 3.9 H Albumin/Globulin Ratio Procalcitonin 1.06 H Urine Appearance Urine Protein Urine Ketones Urine Occult Blood Ur Leukocyte Esterase Urine RBC Urine WBC Urine Bacteria Cellular Casts Hyaline Casts Granular Casts Urine Mucus 05/26/22 05/26/22 12:37 12:26 WBC 20.1 H RBC 4.41 L Hgb 12.2 L Hct 39.6 L POC Hct 40.0 L MCHC 30.8 L RDW 15.6 H Plt Count 554 H MPV Immature Gran % (Auto) Neut % (Auto) Lymph % (Auto) Lymph # (Auto) [place] # (Auto) Seg Neutrophils % 82 H Lymphocytes % 7 L Immature Gran # Absolute Neutrophils Platelet Estimate Increased A D-Dimer POC VBG pO2 POC Venous O2 Sat Sodium Chloride POC BUN 33 H BUN Creatinine POC Creatinine 2.3 H Glucose POC Glucose 142 H POC WB Ioniz Calcium 1.14 L C-Reactive Protein Albumin Globulin Albumin/Globulin Ratio Procalcitonin Urine Appearance Urine Protein Urine Ketones Urine Occult Blood Ur Leukocyte Esterase Urine RBC Urine WBC Urine Bacteria Cellular Casts Hyaline Casts Granular Casts Urine Mucus Meds: Medications Acetaminophen (Acetaminophen 325 Mg Tablet) 650 mg PO Q6HP PRN; Protocol PRN Reason: Per Pain Protocol/Fever > 101 Albuterol/Ipratropium (Ipratropium/Albuterol 3 Ml Ampul.Neb) 3 ml NEB Q4HRT PRN PRN Reason: Wheezing Amitriptyline HCl (Amitriptyline 25 Mg Tablet) 50 mg PO [facility] Last Admin: 05/28/22 20:55 Dose: Not Given Atorvastatin Calcium (Atorvastatin 10 Mg Tablet) 10 mg PO QDAY [facility] Last Admin: 05/28/22 08:06 Dose: 10 mg Clopidogrel Bisulfate (Clopidogrel 75 Mg Tablet) 75 mg PO QDAY [facility] Last Admin: 05/28/22 08:06 Dose: 75 mg Docusate Sodium (Docusate Sodium 100 Mg Capsule) 100 mg PO BID [facility] Last Admin: 05/28/22 20:55 Dose: Not Given Doxazosin Mesylate ([facility]azosin 4 Mg Tablet) [facility] Last Admin: 05/28/22 20:55 Dose: Not Given Duloxetine HCl (Duloxetine 30 Mg Capsule) 30 mg PO QDAY [facility] Last Admin: 05/28/22 08:05 Dose: 30 mg Ferrous Sulfate (Ferrous Sulfate 325 Mg Tablet) 325 mg PO [facility] Last Admin: 05/28/22 07:46 Dose: 325 mg Heparin Sodium (Porcine) (Heparin 5,000 Unit/Ml Vial) 5,000 unit SQ Q12 [facility] Last Admin: 05/28/22 20:54 Dose: 5,000 unit Hydralazine HCl (Hydralazine 20 Mg/Ml Vial) 10 mg IV Q4HP PRN PRN Reason: Hypertension Last Admin: 05/29/22 06:48 Dose: 10 mg Meropenem 1 gm/ Sodium (Chloride) 100 mls @ 100 mls/hr IV Q12H [facility] Last Infusion: 05/28/22 22:02 Dose: Infused Acetaminophen (Ofirmev) 650 mg in 65 mls @ 130 mls/hr IV Q6HP PRN; Protocol PRN Reason: PAIN/FEVER > 101 Last Infusion: 05/29/22 01:00 Dose: Infused Dextrose (Dextrose 5% In Water) 1,000 mls @ 100 mls/hr IV .Q10H [facility] Lactulose (Lactulose 20 Gm/30 Ml Oral.Sepideh) 10 gm PO DAILYP PRN PRN Reason: Constipation Metoprolol Succinate (Metoprolol Succinate 50 Mg Tab.Xl.24h) 50 mg PO QDAY [facility] Last Admin: 05/28/22 08:06 Dose: 50 mg Ondansetron HCl (Ondansetron 4 Mg/2 Ml Vial) 4 mg IV Q4HP PRN; Protocol PRN Reason: Nausea And Vomiting Pantoprazole Sodium (Pantoprazole 40 Mg Tablet) 40 mg PO ACB [facility] Last Admin: 05/28/22 07:46 Dose: 40 mg Paliperidone 3 Mg Tablet Extended Release 24hr 1 dose PO HS [facility] Last Admin: 05/28/22 20:55 Dose: Not Given Senna (Sennosides 1 Tablet) 2 tab PO HSP PRN PRN Reason: Constipation Sodium Biphosphate/Sodium Phosphate (Fleets Adult Enema) 1 dose IN DAILYP PRN PRN Reason: Constipation Last Admin: 05/28/22 16:36 Dose: 1 dose Sodium Chloride (0.9 % Sodium Chloride 10 Ml Syringe) 10 ml IV Q8 [facility] Last Admin: 05/29/22 05:30 Dose: 10 ml Vitamin D (Vitamin D3 25 Mcg Tablet) 50 mcg PO DAILY [facility] Last Admin: 05/28/22 08:06 Dose: 50 mcg A/P Narrative A/P Narrative: Assessment: *PNA, likely aspiration: -febrile last night, suspect aspiration yesterday *Oropharyngeal Dysphagia, mod-sev: *Acute hypoxic respiratory failure: 2/2 above -on 0-1L NC *UTI (E. coli): *Bacteremia (E. coli): *RADHA on CKD IIIb: slowly improving appears to be at baseline *HYpernatremia: *h/o CAD: P: -NPO, LR IVF to d5w -f/u sodium -Speech therapy swallowing evaluation with barium study -cxr -Meropenem to levaquin/flagyl -Supplemental oxygen prn -Avoid nephrotoxic agents -cont BB, -cont ASA/Plavix/Statin -ppx: Heparin Code status: DNR Time Spent With Patient Time: Total time spent is greater than 50% in coordination of care (as documented) at patient's floor/unit and/or counseling patient: Total time spent with greater than 50% in coordination of care (as documented) at patient's floor/unit and/or counseling patient:: 35 - 50 minutes QUALITY VTE Deep Vein Thrombosis/Pulmonary Embolism Present on Admission: No
[2022-05-29] MEDS ORDERED: LABETALOL 5 MG/ML ML IV ONE (08:25)
[2022-05-29] MEDS: DOCUSATE SODIUM 100 MG CAPSULE PO SCH ×2 (09:20→21:17)
[2022-05-29] MEDS: FERROUS SULFATE 325 MG TABLET PO SCH (09:20)
[2022-05-29] MEDS: PANTOPRAZOLE 40 MG TABLET PO SCH (09:20)
[2022-05-29] MEDS: CLOPIDOGREL 75 MG TABLET PO SCH (09:21)
[2022-05-29] MEDS: METOPROLOL SUCCINATE 50 MG TAB.XL.24H PO SCH (09:21)
[2022-05-29] MEDS: DULoxetine 30 MG CAPSULE PO SCH (09:21)
[2022-05-29] MEDS: ATORVASTATIN 10 MG TABLET PO SCH (09:21)
[2022-05-29] MEDS: VITAMIN D3 25 MCG TABLET PO SCH (09:21)
[2022-05-29] MEDS: MEROPENEM 1 GM in 0.9 % SODIUM CHLORIDE 100 ML IV SCH (09:32)
[2022-05-29] MEDS: HEPARIN 5,000 UNIT/ML VIAL SQ SCH ×2 (09:32→21:37)
[2022-05-29] MEDS: LABETALOL 5 MG/ML ML IV PRN (10:31)
--- NOTE | 2022-05-29 11:04 | XRay Report ---
CLINICAL INFORMATION: Cough COMPARISON: 05/26/2022 TECHNIQUE: Portable FINDINGS: Mild cardiomegaly is increased. Mediastinum unremarkable. Pulmonary vessels are mildly distended and there is minimal interstitial edema in the lateral bases. Small left pleural effusion noted. There is minor bibasilar atelectasis. IMPRESSION: Mild CHF or volume overload Interpreted and Authenticated by: Carlton Nieto 05/29/22
[2022-05-29] MEDS: LEVOFLOXACIN 750 MG/150 ML BAG IV SCH (11:52)
[2022-05-29 12:24] LABS: POC Calcium, Ionized 1.11 (1.16-1.32); POC Creatinine 1.5 (0.6-1.2); POC Potassium 3.4 (3.3-5.1)
[2022-05-29 14:39] LABS: POC Calcium, Ionized 1.18 (1.16-1.32); POC Creatinine 1.5 (0.6-1.2); POC Potassium 3.3 (3.3-5.1)
--- NOTE | 2022-05-29 15:00 | XRay Report ---
CLINICAL INFORMATION: Aspiration TECHNIQUE: Exam was performed in conjunction with speech pathology. Thin and thick walled the barium was administered while deglutition was observed fluoroscopically and recorded. Total fluoroscopy time 34 seconds. FINDINGS: Tongue elevation and palate depression are normal resulting in propulsion of the barium bolus into the pharynx. The nasopharyngeus closes normally. Pharyngeal stripping was normal. Cricopharyngeus did not open no barium was admitted into the the cervical esophagus. Epiglottis and vocal cords failed to close allowing large amount of descending aspiration to penetrate into the laryngeal vestibule and trachea. This elicited only a weak cough reflex. Exam was terminated. IMPRESSION: Large amount of descending aspiration due incomplete epiglottis and vocal cord closure. Weak cough reflex. No barium was admitted into the cervical esophagus which could indicate severe cricopharyngeal achalasia, stricture or other pathology in this region Interpreted and Authenticated by: Carlton Nieto 05/29/22
[2022-05-29] MEDS: metroNIDAZOLE 500 MG/100 ML BAG IV SCH ×4 (15:58→22:01)
[2022-05-29] MEDS: CARVEDILOL 12.5 MG TABLET PO SCH (16:51)
[2022-05-29 16:58] LABS: POC Calcium, Ionized 1.11 (1.16-1.32); POC Creatinine 1.5 (0.6-1.2); POC Potassium 3.4 (3.3-5.1)
--- NOTE | 2022-05-29 18:12 | XRay Report ---
CLINICAL INFORMATION: placemetn of ngt COMPARISON: None. FINDINGS: NG tip overlies the gastric fundus The stool gas pattern is unremarkable. There is no free air, soft tissue mass, organomegaly or pathologic calcification. IMPRESSION: Normal abdomen NG tip in gastric fundus Interpreted and Authenticated by: Carlton Nieto 05/29/22
[2022-05-29 20:16] LABS: POC Calcium, Ionized 1.11 (1.16-1.32); POC Creatinine 1.5 (0.6-1.2); POC Potassium 3.5 (3.3-5.1)
[2022-05-29] MEDS: DOXAZOSIN 4 MG TABLET PO SCH (21:37)
[2022-05-29] MEDS: CHLORHEXIDINE GLUCONATE 1 ML ORAL.SOL SWABMOUTH SCH (21:37)
[2022-05-29] MEDS: AMITRIPTYLINE 25 MG TABLET PO SCH (21:37)
[2022-05-29] MEDS: PALIPERIDONE 3 MG PO SCH (21:38)
[2022-05-30] MEDS: LABETALOL 5 MG/ML ML IV PRN (03:25)
[2022-05-30] MEDS: metroNIDAZOLE 500 MG/100 ML BAG IV SCH ×3 (05:22→21:04)
[2022-05-30] MEDS: 0.9 % SODIUM CHLORIDE 10 ML SYRINGE IV SCH ×3 (05:22→21:05)
--- NOTE | 2022-05-30 07:28 | Internal Med Progress Note ---
SUBJECTIVE Subjective Patient information: Note initiated : 05/30/22 at 7:26 am Service Date, if different from initiated Date: [] Patient: Rich Jasmine a 72 y/o M admitted on 05/26/22 for altered LOC-PNA,UTI. Chief Complaint: [] Interval history: Mr. Jasmine is a 72 year old M history of right AKA, BPH, hypertensions with chronic kidney disease, CAD, presenting with 3-day history of general body weakness and altered mental status. According to the right, patient has been progressively getting weak to the point that she cannot care for him. She also noticed altered mental status over the same period of time. As a result, EMS was called to bring the patient to our ED for further evaluation and treatments. He was found to be desaturating on room air so oxygen mask was offered and he was up to 15 L/min of oxygen at that point in the ED. Rest of the vital signs within normal limits. CBC pending at the moment. Chemistry showing serum creatinine of 2.1 with baseline 1.8. D-dimer elevated to 2.49. Lactic acid 1.9 with repeat 0.6. Urinalysis suggesting the presence of urinary tract infections. CT of the head without contrast did not show any acute intracranial pathologies. CTA chest abdomen pelvis showing negative PE, otherwi se left sided multifocal infiltrate consistent with pneumonia. No acute intra- abdominal or pelvic pathologies. 05/27: Afebrile overnight. Patient is currently on 2 and half liters of nasal cannula oxygen but desaturating at 85% so will likely be switched to oxygen mask. Blood culture growing gram-negative bacillus. WBC this morning 21.9. MRSA screening negative. [place] pending. Patient is complaining of shortness of breath, nonproductive cough, negative respiratory wheezings. He is coming of mild chest pain. He denies any subjective fever chills or diaphoresis. Continue supplemental oxygen therapy titrate to maintain SPO2 above 92%. DC vancomycin while continuing meropenem. Repeat blood culture x2 on 05/28/22. 2D echocardiogram to rule out endocarditis. Keep the patient n.p.o. status: Continue D5 LR at 100 cc/h, pending speech therapy swallowing evaluations. Pending physical therapy evaluation and treatment for placement planning. 05/28: Fever with Tmax 39.7 overnight. Patient is currently on 2L/min oxygen via nasal cannula. Both initial blood and urine cultures grew E coli. WBC trends down from 21.9 to 10.7. 2D echocardiogram did not reveal endocardial vegetations. [place] negative. Patient is c/o abdominal distention pain. Denies shortness of breath, cough, or wheezing. He denies any subjective fever chills or diaphoresis. 05/29 Patient started spiking fevers yesterday and the day before. Concern for aspiration. Patient awaiting barium's eval with speech today. Patient denies any new complaints or overnight events. Blood cultures drawn yesterday. White blood cell count normal today. Hyponatremic on labs today. D5 water started. Creatinine looks low but better than yesterday. Blood pressures been elevated. IV as needed's currently while NPO. 05/30 Patient failed barium swallow with speech therapy yesterday. Patient not safe to take orally. We will have a care conference with patient family today to address direction of care. Potential for PEG tube at this is the direction the family like to take. Slept well. No overnight events or new complaints. Review of Systems: denies headache/fever/chills/nausea/vomiting/chest or abdominal p ain/cough/dyspnea/diarrhea. Otherwise see above. Constitutional Vitals: Vital Signs Temp Pulse Resp BP Pulse Ox O2 Del Method O2 Flow Rate 98.6 F 87 16 148/87 98 2 05/30/22 03:21 05/30/22 04:39 05/30/22 03:21 05/30/22 04:39 05/30/22 05:49 05/30/22 05:49 05/30/22 05:00 Period Temp Pulse Resp BP Sys/Esposito Pulse Ox O2 Del Method O2 Flow Rate Last 24 Hr 97.7 F-101.1 F 84-115 13-21 148-212/78-112 75-100 Nasal Cannula-Room Air 1-15 Intake and Output 05/29/22 05/30/22 05/30/22 21:59 05:59 13:59 Intake Total 2250 525 100 Output Total 500 475 Balance 1750 50 100 Weight 67.132 kg Intake & Output: Intake & Output 05/29/22 05/30/22 05/30/22 21:59 05:59 13:59 Intake Total 2250 525 100 Output Total 500 475 Balance 1750 50 100 Weight 67.132 kg Intake: IV 2100 100 100 Dextrose 5% in Water 1,000 ml @ 1000 100 mls/hr IV .Q10H [facility] Rx#: [id number] Dextrose 5%-Lactated Ringers 1, 1000 000 ml @ 75 mls/hr IV .[id number] [facility] Rx#:[id number] Oral 0 Tube Feeding 0 225 GI Tube Flush 150 200 Output: Urine Catheter Amount 500 475 Other: Urine Appearance Clear Clear Uretheral (Workman) Clear Urine Color Yellow Yellow Uretheral (Workman) Yellow Exam: General: Alert, Awake, No acute Distress Eyes/N/T: EOMI, Head/Neck: neck supple, CV: RRR, No murmurs, Pulm: Decreased breath sounds b/l, no wheezing/rhonchi/rales Abd: soft, nontender, +BS x4 Ext: no clubbing/cyanosis/edema, right aka Neuro: Alert, no focal deficits, moves all extremities, Skin: warm/dry OBJ DATA Labs CBC & Chem 7: 05/29/22 05:26 05/30/22 06:32 Labs: Abnormal Lab Results 05/29/22 05/29/22 05/29/22 20:11 16:55 14:36 RBC Hgb Hct POC Hct 36.0 L 33.0 L 36.0 L MCHC RDW Plt Count Immature Gran % (Auto) Neut % (Auto) Lymph % (Auto) Lymph # (Auto) Immature Gran # Absolute Neutrophils POC Sodium 146 H 147 H Sodium Chloride POC BUN 23 H 23 H 24 H BUN Creatinine POC Creatinine 1.5 H 1.5 H 1.5 H Glucose POC Glucose 108 H 108 H 111 H POC WB Ioniz Calcium 1.11 L 1.11 L Albumin Albumin/Globulin Ratio Prealbumin 05/29/22 05/29/22 05/29/22 14:36 12:21 05:26 RBC 4.11 L Hgb 11.4 L Hct 37.2 L POC Hct 34.0 L MCHC 30.6 L RDW 15.9 H Plt Count 473 H Immature Gran % (Auto) 0.8 H Neut % (Auto) Lymph % (Auto) 13.0 L Lymph # (Auto) 1.03 L Immature Gran # 0.06 H Absolute Neutrophils POC Sodium 147 H Sodium Chloride POC BUN 25 H BUN Creatinine POC Creatinine 1.5 H Glucose POC Glucose 125 H POC WB Ioniz Calcium 1.11 L Albumin Albumin/Globulin Ratio Prealbumin 15.0 L 05/29/22 05/28/22 05/28/22 05:25 06:00 06:00 RBC 3.78 L Hgb 10.8 L Hct 35.0 L POC Hct MCHC 30.9 L RDW 15.9 H Plt Count 485 H Immature Gran % (Auto) 0.6 H Neut % (Auto) 83.1 H Lymph % (Auto) 7.8 L Lymph # (Auto) 0.84 L Immature Gran # 0.06 H Absolute Neutrophils 8.93 H POC Sodium Sodium 147 H Chloride 111 H POC BUN BUN 26 H 27 H Creatinine 1.5 H 1.7 H POC Creatinine Glucose 112 H 108 H POC Glucose POC WB Ioniz Calcium Albumin 3.0 L Albumin/Globulin Ratio 0.9 L Prealbumin 05/27/22 05:28 RBC Hgb Hct POC Hct MCHC RDW Plt Count Immature Gran % (Auto) Neut % (Auto) Lymph % (Auto) Lymph # (Auto) Immature Gran # Absolute Neutrophils POC Sodium Sodium Chloride POC BUN BUN 32 H Creatinine 1.9 H POC Creatinine Glucose 130 H POC Glucose POC WB Ioniz Calcium Albumin Albumin/Globulin Ratio Prealbumin Meds: Medications Acetaminophen (Acetaminophen 325 Mg Tablet) 650 mg PO Q6HP PRN; Protocol PRN Reason: Per Pain Protocol/Fever > 101 Albuterol/Ipratropium (Ipratropium/Albuterol 3 Ml Ampul.Neb) 3 ml NEB Q4HRT PRN PRN Reason: Wheezing Amitriptyline HCl (Amitriptyline 25 Mg Tablet) 50 mg PO [facility] Last Admin: 05/29/22 21:37 Dose: 50 mg Atorvastatin Calcium (Atorvastatin 10 Mg Tablet) 10 mg PO QDAY [facility] Last Admin: 05/29/22 09:21 Dose: Not Given Carvedilol (Carvedilol 12.5 Mg Tablet) 12.5 mg PO BIDCC [facility] Last Admin: 05/29/22 16:51 Dose: Not Given Chlorhexidine Gluconate (Chlorhexidine Gluconate 1 Ml Oral.Sepideh) 15 ml SWABMOUTH BID [facility] Last Admin: 05/29/22 21:37 Dose: 15 ml Clopidogrel Bisulfate (Clopidogrel 75 Mg Tablet) 75 mg PO QDAY [facility] Last Admin: 05/29/22 09:21 Dose: Not Given Docusate Sodium (Docusate Sodium 100 Mg Capsule) 100 mg PO BID [facility] Last Admin: 05/29/22 21:17 Dose: Not Given Doxazosin Mesylate (Doxazosin 4 Mg Tablet) 4 mg PO QHS [facility] Last Admin: 05/29/22 21:37 Dose: 4 mg Duloxetine HCl (Duloxetine 30 Mg Capsule) 30 mg PO QDAY [facility] Last Admin: 05/29/22 09:21 Dose: Not Given Ferrous Sulfate (Ferrous Sulfate 325 Mg Tablet) 325 mg PO [facility] Last Admin: 05/29/22 09:20 Dose: Not Given Heparin Sodium (Porcine) (Heparin 5,000 Unit/Ml Vial) 5,000 unit SQ Q12 [facility] Last Admin: 05/29/22 21:37 Dose: 5,000 unit Hydralazine HCl (Hydralazine 20 Mg/Ml Vial) 0 mg IV Q2HP PRN PRN Reason: Hypertension Last Admin: 05/29/22 23:24 Dose: 10 mg Acetaminophen (Ofirmev) 650 mg in 65 mls @ 130 mls/hr IV Q6HP PRN; Protocol PRN Reason: PAIN/FEVER > 101 Last Infusion: 05/29/22 01:00 Dose: Infused Levofloxacin (Levaquin) 750 mg in 150 mls @ 100 mls/hr IV Q48H [facility] Last Infusion: 05/29/22 13:20 Dose: Infused Metronidazole (Flagyl) 500 mg in 100 mls @ 100 mls/hr IV Q8H [facility]; Protocol Last Infusion: 05/30/22 06:41 Dose: Infused Labetalol HCl (Labetalol 5 Mg/Ml Ml) 0 mg IV Q2HP PRN PRN Reason: Hypertension Last Admin: 05/30/22 03:25 Dose: 20 mg Lactulose (Lactulose 20 Gm/30 Ml Oral.Sepideh) 10 gm PO DAILYP PRN PRN Reason: Constipation Ondansetron HCl (Ondansetron 4 Mg/2 Ml Vial) 4 mg IV Q4HP PRN; Protocol PRN Reason: Nausea And Vomiting Pantoprazole Sodium (Pantoprazole 40 Mg Tablet) 40 mg PO ACB [facility] Last Admin: 05/29/22 09:20 Dose: Not Given Paliperidone 3 Mg Tablet Extended Release 24hr 1 dose PO HS [facility] Last Admin: 05/29/22 21:38 Dose: Not Given Senna (Sennosides 1 Tablet) 2 tab PO HSP PRN PRN Reason: Constipation Sodium Biphosphate/Sodium Phosphate (Fleets Adult Enema) 1 dose GA DAILYP PRN PRN Reason: Constipation Last Admin: 05/28/22 16:36 Dose: 1 dose Sodium Chloride (0.9 % Sodium Chloride 10 Ml Syringe) 10 ml IV Q8 [facility] Last Admin: 05/30/22 05:22 Dose: 10 ml Vitamin D (Vitamin D3 25 Mcg Tablet) 50 mcg PO DAILY [facility] Last Admin: 05/29/22 09:21 Dose: Not Given A/P Narrative A/P Narrative: Assessment: *PNA, Aspiration: -afebrile last night *Oropharyngeal Dysphagia, Severe: -pt not safe to take orally *Acute hypoxic respiratory failure: 2/2 above -on 0-1L NC *UTI (E. coli): *Bacteremia (E. coli): *RADHA on CKD IIIb: slowly improving appears to be at baseline *HYpernatremia: improved *h/o CAD: P: -NPO, TF's while goals of care discussion in place -f/u sodium -Speech therapy -cont levaquin/flagyl -Supplemental oxygen prn -Avoid nephrotoxic agents -cont BB, -cont ASA/Plavix/Statin -ppx: Heparin Code status: DNR Time Spent With Patient Time: Total time spent is greater than 50% in coordination of care (as documented) at patient's floor/unit and/or counseling patient: Total time spent with greater than 50% in coordination of care (as documented) at patient's floor/unit and/or counseling patient:: 25 - 35 minutes QUALITY VTE Deep Vein Thrombosis/Pulmonary Embolism Present on Admission: No
[2022-05-30 08:07] LABS: ALT/SGPT 6 U/L (<40); AST/SGOT 14 U/L (<40); Albumin/Globulin Ratio 0.9 (1.0-2.3); Alkaline Phosphatase 83 U/L (39-117); Bilirubin,Direct < 0.2 mg/dL (0-0.3); Bilirubin,Total < 0.2 mg/dL (0.1-1.0); Blood Urea Nitrogen 26 mg/dL (8-23); Calcium 8.8 mg/dL (8.6-10.4); Carbon Dioxide 27 mmol/L (22-30); Chloride 106 mmol/L (96-108); Globulin 3.3 gm/dL (2.2-3.7); Glomerular Filtration Rate 42; Glucose 125 mg/dL (70-105); Lactate Dehydrogenase 205 U/L (135-225); Phosphorous 2.7 mg/dL (2.5-4.5); Triglycerides 156 mg/dL (<150); Uric Acid 6.5 mg/dL (2.5-8.0)
[2022-05-30] MEDS: PANTOPRAZOLE 40 MG TABLET PO SCH (08:17)
[2022-05-30] MEDS ORDERED: SENNOSIDES 8.8 MG/5 ML ML PT PRN (09:15)
[2022-05-30] MEDS: VITAMIN D3 25 MCG TABLET PO SCH (11:40)
[2022-05-30] MEDS: HEPARIN 5,000 UNIT/ML VIAL SQ SCH ×2 (11:40→21:03)
[2022-05-30] MEDS: DULoxetine 30 MG CAPSULE PT SCH (11:40)
[2022-05-30] MEDS: ATORVASTATIN 10 MG TABLET PO SCH (11:40)
[2022-05-30] MEDS: DOCUSATE SODIUM 10 MG/ML ML PT SCH ×2 (11:41→21:05)
[2022-05-30] MEDS: CARVEDILOL 12.5 MG TABLET PT SCH ×2 (11:41→17:29)
[2022-05-30] MEDS: FERROUS SULFATE 325 MG TABLET PO SCH (11:41)
[2022-05-30] MEDS: CLOPIDOGREL 75 MG TABLET PO SCH (11:42)
[2022-05-30] MEDS: CHLORHEXIDINE GLUCONATE 1 ML ORAL.SOL SWABMOUTH SCH ×2 (11:42→21:05)
[2022-05-30] MEDS: PANTOPRAZOLE 40 MG PACKET PT SCH (11:42)
[2022-05-30] MEDS: hydrALAZINE 20 MG/ML VIAL IV PRN ×2 (15:30→21:06)
[2022-05-30] MEDS: AMITRIPTYLINE 25 MG TABLET PO SCH (21:04)
[2022-05-30] MEDS: DOXAZOSIN 4 MG TABLET PO SCH (21:04)
[2022-05-30] MEDS: PALIPERIDONE 3 MG PO SCH (21:04)
[2022-05-31] MEDS: metroNIDAZOLE 500 MG/100 ML BAG IV SCH ×3 (05:40→21:43)
[2022-05-31] MEDS: 0.9 % SODIUM CHLORIDE 10 ML SYRINGE IV SCH ×3 (05:40→21:43)
[2022-05-31] MEDS: DULoxetine 30 MG CAPSULE PO SCH (06:15)
[2022-05-31] MEDS: CARVEDILOL 12.5 MG TABLET PO SCH (06:15)
--- NOTE | 2022-05-31 07:25 | Internal Med Progress Note ---
SUBJECTIVE Subjective Patient information: Note initiated : 05/31/22 at 7:25 am Service Date, if different from initiated Date: [] Patient: Rich Jasmine a 72 y/o M admitted on 05/26/22 for altered LOC-PNA,UTI. Chief Complaint: [] Interval history: Mr. Jasmine is a 72 year old M history of right AKA, BPH, hypertensions with chronic kidney disease, CAD, presenting with 3-day history of general body weakness and altered mental status. According to the right, patient has been progressively getting weak to the point that she cannot care for him. She also noticed altered mental status over the same period of time. As a result, EMS was called to bring the patient to our ED for further evaluation and treatments. He was found to be desaturating on room air so oxygen mask was offered and he was up to 15 L/min of oxygen at that point in the ED. Rest of the vital signs within normal limits. CBC pending at the moment. Chemistry showing serum creatinine of 2.1 with baseline 1.8. D-dimer elevated to 2.49. Lactic acid 1.9 with repeat 0.6. Urinalysis suggesting the presence of urinary tract infections. CT of the head without contrast did not show any acute intracranial pathologies. CTA chest abdomen pelvis showing negative PE, otherwi se left sided multifocal infiltrate consistent with pneumonia. No acute intra- abdominal or pelvic pathologies. 05/27: Afebrile overnight. Patient is currently on 2 and half liters of nasal cannula oxygen but desaturating at 85% so will likely be switched to oxygen mask. Blood culture growing gram-negative bacillus. WBC this morning 21.9. MRSA screening negative. [place] pending. Patient is complaining of shortness of breath, nonproductive cough, negative respiratory wheezings. He is coming of mild chest pain. He denies any subjective fever chills or diaphoresis. Continue supplemental oxygen therapy titrate to maintain SPO2 above 92%. DC vancomycin while continuing meropenem. Repeat blood culture x2 on 05/28/22. 2D echocardiogram to rule out endocarditis. Keep the patient n.p.o. status: Continue D5 LR at 100 cc/h, pending speech therapy swallowing evaluations. Pending physical therapy evaluation and treatment for placement planning. 05/28: Fever with Tmax 39.7 overnight. Patient is currently on 2L/min oxygen via nasal cannula. Both initial blood and urine cultures grew E coli. WBC trends down from 21.9 to 10.7. 2D echocardiogram did not reveal endocardial vegetations. [place] negative. Patient is c/o abdominal distention pain. Denies shortness of breath, cough, or wheezing. He denies any subjective fever chills or diaphoresis. 05/29 Patient started spiking fevers yesterday and the day before. Concern for aspiration. Patient awaiting barium's eval with speech today. Patient denies any new complaints or overnight events. Blood cultures drawn yesterday. White blood cell count normal today. Hyponatremic on labs today. D5 water started. Creatinine looks low but better than yesterday. Blood pressures been elevated. IV as needed's currently while NPO. 05/30 Patient failed barium swallow with speech therapy yesterday. Patient not safe to take orally. We will have a care conference with patient family today to address direction of care. Potential for PEG tube at this is the direction the family like to take. Slept well. No overnight events or new complaints. Had a discussion with the and family members about his direction of care. Given his degree of dementia the goals of care were discussed with his as the decision maker. I discussed the results of the barium study and what that meant as far as risk of aspiration. Then discussed the options: PEG tube placement vs leaving the [place] in for a week and having speech therapy reevaluate him in hopes of seeing improvement enough to place on a dysphagia diet vs no feeding tubes and likely referral to hospice. Family would like to try to leave the [place] and for now and have speech therapy follow-up with them outpatient and reevaluate him and then make their decision whether or not to go PEG tube route or or hospice route. 05/31 Sleeping. No overnight event or new complaints. Continue tube feeds and case management working on placement. Renal function stable. Review of Systems: denies headache/fever/chills/nausea/vomiting/chest or abdominal pain/cough/dyspnea/diarrhea. Otherwise see above. Constitutional Vitals: Vital Signs Temp Pulse Resp BP Pulse Ox O2 Del Method O2 Flow Rate 99.1 F H 106 H 14 157/85 93 2 05/31/22 07:07 05/31/22 07:07 05/31/22 07:07 05/31/22 07:07 05/31/22 07:07 05/31/22 07:07 05/30/22 05:00 Period Temp Pulse Resp BP Sys/Esposito Pulse Ox O2 Del Method O2 Flow Rate Last 24 Hr 97.0 F-99.1 F 87-106 14-20 110-178/48-110 93-95 Room Air-Room Air Intake and Output 05/30/22 05/31/22 05/31/22 21:59 05:59 13:59 Intake Total 960 941 100 Output Total 1200 450 Balance -240 491 100 Weight 66.791 kg Intake & Output: Intake & Output 05/30/22 05/31/22 05/31/22 21:59 05:59 13:59 Intake Total 960 941 100 Output Total 1200 450 Balance -240 491 100 Weight 66.791 kg Intake: IV 100 100 100 Tube Feeding 660 641 GI Tube Flush 200 200 Output: Urine Catheter Amount 1200 450 Other: Urine Appearance Uretheral (Workman) Clear Urine Color Uretheral (Workman) Yellow Exam: General: Sleeping, No acute Distress Eyes/N/T: Head/Neck: neck supple, CV: RRR, No murmurs, Pulm: Decreased breath sounds b/l, no wheezing/rhonchi/rales Abd: soft, nontender, +BS x4 Ext: no clubbing/cyanosis/edema, right aka Neuro: Sleeping, no focal deficits, moves all extremities, Skin: warm/dry OBJ DATA Labs CBC & Chem 7: 05/29/22 05:26 05/31/22 06:12 Labs: Abnormal Lab Results 05/30/22 05/30/22 05/29/22 06:32 06:32 20:11 RBC Hgb Hct POC Hct 36.0 L MCHC RDW Plt Count Immature Gran % (Auto) Lymph % (Auto) Lymph # (Auto) Immature Gran # POC Sodium Sodium Chloride POC BUN 23 H BUN 26 H Creatinine 1.6 H POC Creatinine 1.5 H Glucose 125 H POC Glucose 108 H POC WB Ioniz Calcium 1.11 L Albumin 3.0 L Albumin/Globulin Ratio 0.9 L Prealbumin Triglycerides 156 H Procalcitonin 0.54 H 05/29/22 05/29/22 05/29/22 16:55 14:36 14:36 RBC Hgb Hct POC Hct 33.0 L 36.0 L MCHC RDW Plt Count Immature Gran % (Auto) Lymph % (Auto) Lymph # (Auto) Immature Gran # POC Sodium 146 H 147 H Sodium Chloride POC BUN 23 H 24 H BUN Creatinine POC Creatinine 1.5 H 1.5 H Glucose POC Glucose 108 H 111 H POC WB Ioniz Calcium 1.11 L Albumin Albumin/Globulin Ratio Prealbumin 15.0 L Triglycerides Procalcitonin 05/29/22 05/29/22 05/29/22 12:21 05:26 05:25 RBC 4.11 L Hgb 11.4 L Hct 37.2 L POC Hct 34.0 L MCHC 30.6 L RDW 15.9 H Plt Count 473 H Immature Gran % (Auto) 0.8 H Lymph % (Auto) 13.0 L Lymph # (Auto) 1.03 L Immature Gran # 0.06 H POC Sodium 147 H Sodium 147 H Chloride 111 H POC BUN 25 H BUN 26 H Creatinine 1.5 H POC Creatinine 1.5 H Glucose 112 H POC Glucose 125 H POC WB Ioniz Calcium 1.11 L Albumin 3.0 L Albumin/Globulin Ratio 0.9 L Prealbumin Triglycerides Procalcitonin 05/28/22 06:00 RBC Hgb Hct POC Hct MCHC RDW Plt Count Immature Gran % (Auto) Lymph % (Auto) Lymph # (Auto) Immature Gran # POC Sodium Sodium Chloride POC BUN BUN 27 H Creatinine 1.7 H POC Creatinine Glucose 108 H POC Glucose POC WB Ioniz Calcium Albumin Albumin/Globulin Ratio Prealbumin Triglycerides Procalcitonin Meds: Medications Acetaminophen (Acetaminophen 325 Mg Tablet) 650 mg PO Q6HP PRN; Protocol PRN Reason: Per Pain Protocol/Fever > 101 Albuterol/Ipratropium (Ipratropium/Albuterol 3 Ml Ampul.Neb) 3 ml NEB Q4HRT PRN PRN Reason: Wheezing Amitriptyline HCl (Amitriptyline 25 Mg Tablet) 50 mg PO HS [facility] Last Admin: 05/30/22 21:04 Dose: 50 mg Atorvastatin Calcium (Atorvastatin 10 Mg Tablet) 10 mg PO QDAY [facility] Last Admin: 05/30/22 11:40 Dose: 10 mg Carvedilol (Carvedilol 12.5 Mg Tablet) 12.5 mg PT BIDCC [facility] Last Admin: 05/30/22 17:29 Dose: 12.5 mg Chlorhexidine Gluconate (Chlorhexidine Gluconate 1 Ml Oral.Sepideh) 15 ml SWABMOUTH BID [facility] Last Admin: 05/30/22 21:05 Dose: 15 ml Clopidogrel Bisulfate (Clopidogrel 75 Mg Tablet) 75 mg PO QDAY [facility] Last Admin: 05/30/22 11:42 Dose: Not Given Docusate Sodium (Docusate Sodium 10 Mg/Ml Ml) 100 mg PT BID [facility] Last Admin: 05/30/22 21:05 Dose: Not Given Doxazosin Mesylate (Doxazosin 4 Mg Tablet) 4 mg PO QHS [facility] Last Admin: 05/30/22 21:04 Dose: 4 mg Duloxetine HCl (Duloxetine 30 Mg Capsule) 30 mg PT QDAY [facility] Last Admin: 05/30/22 11:40 Dose: 30 mg Ferrous Sulfate (Ferrous Sulfate 325 Mg Tablet) 325 mg PO QAC [facility] Last Admin: 05/30/22 11:41 Dose: Not Given Heparin Sodium (Porcine) (Heparin 5,000 Unit/Ml Vial) 5,000 unit SQ Q12 [facility] Last Admin: 05/30/22 21:03 Dose: 5,000 unit Hydralazine HCl (Hydralazine 20 Mg/Ml Vial) 0 mg IV Q2HP PRN PRN Reason: Hypertension Last Admin: 05/30/22 21:06 Dose: 20 mg Acetaminophen (Ofirmev) 650 mg in 65 mls @ 130 mls/hr IV Q6HP PRN; Protocol PRN Reason: PAIN/FEVER > 101 Last Infusion: 05/29/22 01:00 Dose: Infused Levofloxacin (Levaquin) 750 mg in 150 mls @ 100 mls/hr IV Q48H [facility] Last Infusion: 05/29/22 13:20 Dose: Infused Metronidazole (Flagyl) 500 mg in 100 mls @ 100 mls/hr IV Q8H [facility]; Protocol Last Infusion: 05/31/22 06:46 Dose: Infused Labetalol HCl (Labetalol 5 Mg/Ml Ml) 0 mg IV Q2HP PRN PRN Reason: Hypertension Last Admin: 05/30/22 03:25 Dose: 20 mg Lactulose (Lactulose 20 Gm/30 Ml Oral.Sepideh) 10 gm PO DAILYP PRN PRN Reason: Constipation Ondansetron HCl (Ondansetron 4 Mg/2 Ml Vial) 4 mg IV Q4HP PRN; Protocol PRN Reason: Nausea And Vomiting Pantoprazole Sodium (Pantoprazole 40 Mg Packet) 40 mg PT QAMAC [facility] Last Admin: 05/30/22 11:42 Dose: 40 mg Paliperidone 3 Mg Tablet Extended Release 24hr 1 dose PO HS [facility] Last Admin: 05/30/22 21:04 Dose: 1 dose Senna (Sennosides 8.8 Mg/5 Ml Ml) 8.8 mg PT HSP PRN PRN Reason: Constipation Sodium Biphosphate/Sodium Phosphate (Fleets Adult Enema) 1 dose ND DAILYP PRN PRN Reason: Constipation Last Admin: 05/28/22 16:36 Dose: 1 dose Sodium Chloride (0.9 % Sodium Chloride 10 Ml Syringe) 10 ml IV Q8 [facility] Last Admin: 05/31/22 05:40 Dose: 10 ml Vitamin D (Vitamin D3 25 Mcg Tablet) 50 mcg PO DAILY [facility] Last Admin: 05/30/22 11:40 Dose: 50 mcg A/P Narrative A/P Narrative: Assessment: *PNA, Aspiration: -afebrile *Oropharyngeal Dysphagia, Severe: -pt not safe to take orally *Acute hypoxic respiratory failure: 2/2 above -now on room air *UTI (E. coli): *Bacteremia (E. coli): *RADHA on CKD IIIb: slowly improving appears to be at baseline *HYpernatremia: improved *h/o CAD: *HTN: elevated and says has been running high at home *Dementia: *Poor functional status: P: -NPO, TF's while goals of care discussion in place -Speech therapy -cont levaquin/flagyl 7-14 day course -Supplemental oxygen prn -Avoid nephrotoxic agents -switched metoprolol to coreg for better bp control -cont ASA/Plavix/Statin -CM for placement -ppx: Heparin Code status: DNR Time Spent With Patient Time: Total time spent is greater than 50% in coordination of care (as documented) at patient's floor/unit and/or counseling patient: Total time spent with greater than 50% in coordination of care (as documented) at patient's floor/unit and/or counseling patient:: 25 - 35 minutes QUALITY VTE Deep Vein Thrombosis/Pulmonary Embolism Present on Admission: No
--- NOTE | 2022-05-31 07:27 | Discharge Summary ---
Discharge Provider Provider IMPORTANT FOLLOW-UP INFORMATION FOR PCP: Patient information: Note initiated : 05/31/22 at 7:25 am Service Date, if different from initiated Date: [] Patient: Rich Jasmine 72 y/o M admitted on 05/26/22 for altered LOC-PNA,UTI. Chief Complaint: [] Date of admission: 05/26/22 21:46 Primary care physician: Calli Ordaz Consults: 05/26/22 Consult to Physician [CONS] Stat Comment: Consulting Provider: Ajit Griffiths Reason For Exam: Physician to Consult 05/27/22 15:16 Consult to Physician [CONS] Routine Comment: snf referral Consulting Provider: [facility]essa Reason For Exam: Physician to Consult COURSE Hospital Course Hospital course: Interval history: Mr. Jasmine is a 72 year old M history of right AKA, BPH, hypertensions with chronic kidney disease, CAD, presenting with 3-day history of general body weakness and altered mental status. According to the right, patient has been progressively getting weak to the point that she cannot care for him. She also noticed altered mental status over the same period of time. As a result, EMS was called to bring the patient to our ED for further evaluation and treatments. He was found to be desaturating on room air so oxygen mask was offered and he was up to 15 L/min of oxygen at that point in the ED. Rest of the vital signs within normal limits. CBC pending at the moment. Chemistry sh owing serum creatinine of 2.1 with baseline 1.8. D-dimer elevated to 2.49. Lactic acid 1.9 with repeat 0.6. Urinalysis suggesting the presence of urinary tract infections. CT of the head without contrast did not show any acute intracranial pathologies. CTA chest abdomen pelvis showing negative PE, otherwise left sided multifocal infiltrate consistent with pneumonia. No acute intra-abdominal or pelvic pathologies. 05/27: Afebrile overnight. Patient is currently on 2 and half liters of nasal cannula oxygen but desaturating at 85% so will likely be switched to oxygen mask. Blood culture growing gram-negative bacillus. WBC this morning 21.9. MRSA screening negative. [place] pending. Patient is complaining of shortness of breath, nonproductive cough, negative respiratory wheezings. He is coming of mild chest pain. He denies any subjective fever chills or diaphoresis. Continue supplemental oxygen therapy titrate to maintain SPO2 above 92%. DC vancomycin while continuing meropenem. Repeat blood culture x2 on 05/28/22. 2D echocardiogram to rule out endocarditis. Keep the patient n.p.o. status: Continue D5 LR at 100 cc/h, pending speech therapy swallowing evaluations. Pe nding physical therapy evaluation and treatment for placement planning. 05/28: Fever with Tmax 39.7 overnight. Patient is currently on 2L/min oxygen via nasal cannula. Both initial blood and urine cultures grew E coli. WBC trends down from 21.9 to 10.7. 2D echocardiogram did not reveal endocardial vegetations. [place] negative. Patient is c/o abdominal distention pain. Denies shortness of breath, cough, or wheezing. He denies any subjective fever chills or diaphoresis. 05/29 Patient started spiking fevers yesterday and the day before. Concern for aspiration. Patient awaiting barium's eval with speech today. Patient denies any new complaints or overnight events. Blood cultures drawn yesterday. White blood cell count normal today. Hyponatremic on labs today. D5 water started. Creatinine looks low but better than yesterday. Blood pressures been elevated. IV as needed's currently while NPO. 05/30 Patient failed barium swallow with speech therapy yesterday. Patient not safe to take orally. We will have a care conference with patient family today to address direction of care. Potential for PEG tube at this is the direction the family like to take. Slept well. No overnight events or new complaints. Had a discussion with the and family members about his direction of care. Given his degree of dementia the goals of care were discussed with his as the decision maker. I discussed the results of the barium study and what that meant as far as risk of aspiration. Then discussed the options: PEG tube placement vs leaving the [place] in for a week and having speech therapy reevaluate him in hopes of seeing improvement enough to place on a dysphagia diet vs no feeding tubes and likely referral to hospice. Family would like to try to leave the [place] and for now and have speech therapy follow-up with them outpatient and reevaluate him and then make their decision whether or not to go PEG tube route or or hospice route. 05/31 Sleeping. No overnight event or new complaints. Continue tube feeds and case management working on placement. Renal function stable. Assessment: *PNA, Aspiration: -afebrile last night *Oropharyngeal Dysphagia, Severe: -pt not safe to take orally *Acute hypoxic respiratory failure: 2/2 above -on 0-1L NC *UTI (E. coli): *Bacteremia (E. coli): *RADHA on CKD IIIb: slowly improving appears to be at baseline *HYpernatremia: improved *h/o CAD: *HTN: elevated and says has been running high at home *Dementia: *Poor functional status: P: -NPO, TF's -f/u with Speech therapy 5-7 days to determine if swallow fxn improved enough for oral diet -finish abx, 7-14 day course -switched metoprolol to coreg for better bp control Discharge diagnosis: Aspiration pneumonia oropharyngeal dysphagiaAcute hypoxic respite failure U Secondary discharge diagnosis: UTI bacteremia acute kidney injury chronic kidney injury hyponatremia CAD hypertension dementia poor functional status Time Spent with Patient Time attestation: Total time spent providing and/or coordinating discharge services: EXAM Constitutional Vitals: Temp Pulse Resp BP Pulse Ox O2 Del Method O2 Flow Rate 99.1 F H 106 H 14 157/85 93 2 05/31/22 07:07 05/31/22 07:07 05/31/22 07:07 05/31/22 07:07 05/31/22 07:07 05/31/22 07:07 05/30/22 05:00 Discharge Data Data Completed and Pending Labs on day of discharge: Labs from last 24 hours 05/31/22 05/30/22 05/30/22 06:12 06:32 06:32 Sodium Pending 144 Potassium Pending 3.9 Chloride Pending 106 Carbon Dioxide Pending 27 Anion Gap Pending 11.0 BUN Pending 26 H Creatinine Pending 1.6 H GFR Calculation Pending 42 Glucose Pending 125 H Uric Acid 6.5 Calcium Pending 8.8 Phosphorus 2.7 Magnesium 2.2 Total Bilirubin < 0.2 Direct Bilirubin < 0.2 GGT 28 AST 14 ALT 6 Alkaline Phosphatase 83 Lactate Dehydrogenase 205 Total Protein 6.3 Albumin 3.0 L Globulin 3.3 Albumin/Globulin Ratio 0.9 L Triglycerides 156 H Procalcitonin 0.54 H Preliminary micro results at discharge 05/28/22 06:00 Blood Culture - Preliminary Blood 05/28/22 05:55 Blood Culture - Preliminary Blood 05/26/22 12:30 Blood Culture - Preliminary Blood 05/26/22 12:36 Blood Culture - Preliminary Blood Escherichia coli Discharge Plan Patient/Caregiver Discharge Instructions Activity: increase activity as tolerated Diet: NPO Activity Restrictions/Additional Instructions: Tube feedings per dietary Prescriptions: Continued clopidogrel 75 mg tablet 75 mg PO QDAY Label Comments: PCP Rx pantoprazole 40 mg tablet,delayed release (DR/EC) 40 mg PO QDAY Label Comments: PCP Rx amitriptyline 50 mg tablet 50 mg PO QHS Label Comments: PCP Rx atorvastatin 10 mg tablet 10 mg PO QDAY Label Comments: PCP RX duloxetine 30 mg capsule,delayed release(DR/EC) 30 mg PO QDAY paliperidone 3 mg tablet extended release 24hr 3 mg PO HS Label Comments: PCP Rx cholecalciferol (vitamin D3) 50 mcg (2,000 unit) capsule 2,000 unit PO QDAY Label Comments: PCP OTC RX Rx Instructions: administer with meals docusate sodium 100 mg capsule 100 mg PO QDAY doxazosin 4 mg tablet 4 mg PO QHS Qty: 30 11RF Rx Instructions: New dosage ferrous sulfate 325 mg (65 mg iron) Tablet 325 mg PO QDAY acetaminophen 500 mg Capsule 1,000 mg PO BID No Action metoprolol succinate [Toprol XL] 50 mg tablet extended release 24 hr 50 mg PO QDAY Follow Up Plan Follow up with: Calli Ordaz MD [Primary Care Provider] - Patient Disposition: Xfer SNF Prognosis: Undetermined Rehab Potential: Fair I certify that the patient requires SNF services: Yes Overall status at discharge: patient is progressing back to baseline QUALITY VTE Deep Vein Thrombosis/Pulmonary Embolism Present on Admission: No
[2022-05-31 07:50] LABS: Blood Urea Nitrogen 33 mg/dL (8-23); Calcium 8.6 mg/dL (8.6-10.4); Carbon Dioxide 30 mmol/L (22-30); Chloride 105 mmol/L (96-108); Glomerular Filtration Rate 42; Glucose 129 mg/dL (70-105)
[2022-05-31] MEDS ORDERED: DEXTROSE 5% IN WATER 500 ML IV ONE (08:01)
[2022-05-31] MEDS: FERROUS SULFATE 325 MG TABLET PO SCH (08:05)
[2022-05-31] MEDS: DOCUSATE SODIUM 10 MG/ML ML PT SCH ×2 (08:55→20:25)
[2022-05-31] MEDS: DULoxetine 30 MG CAPSULE PT SCH (09:00)
[2022-05-31] MEDS: VITAMIN D3 25 MCG TABLET PO SCH (09:00)
[2022-05-31] MEDS: HEPARIN 5,000 UNIT/ML VIAL SQ SCH ×2 (09:00→20:26)
[2022-05-31] MEDS: ATORVASTATIN 10 MG TABLET PO SCH (09:00)
[2022-05-31] MEDS: CLOPIDOGREL 75 MG TABLET PO SCH (09:00)
[2022-05-31] MEDS: LEVOFLOXACIN 750 MG/150 ML BAG IV SCH (09:23)
[2022-05-31] MEDS: PANTOPRAZOLE 40 MG PACKET PT SCH (10:23)
[2022-05-31] MEDS: CHLORHEXIDINE GLUCONATE 1 ML ORAL.SOL SWABMOUTH SCH ×2 (10:24→20:26)
[2022-05-31] MEDS: CARVEDILOL 12.5 MG TABLET PT SCH ×2 (10:24→17:10)
[2022-05-31] MEDS: hydrALAZINE 20 MG/ML VIAL IV PRN (12:15)
[2022-05-31] MEDS: DOXAZOSIN 4 MG TABLET PO SCH (20:24)
[2022-05-31] MEDS: PALIPERIDONE 3 MG PO SCH (20:24)
[2022-05-31] MEDS: AMITRIPTYLINE 25 MG TABLET PO SCH (20:24)
[2022-06-01] MEDS: hydrALAZINE 20 MG/ML VIAL IV PRN ×3 (03:31→21:34)
[2022-06-01] MEDS: 0.9 % SODIUM CHLORIDE 10 ML SYRINGE IV SCH ×3 (05:09→21:04)
[2022-06-01] MEDS: metroNIDAZOLE 500 MG/100 ML BAG IV SCH (05:09)
--- NOTE | 2022-06-01 08:08 | Internal Med Progress Note ---
SUBJECTIVE Subjective Patient information: Note initiated : 06/01/22 at 8:04 am Service Date, if different from initiated Date: [] Patient: Rich Jasmine a 72 y/o M admitted on 05/26/22 for altered LOC-PNA,UTI. Chief Complaint: [] Interval history: Mr. Jasmine is a 72 year old M history of right AKA, BPH, hypertensions with chronic kidney disease, CAD, presenting with 3-day history of general body weakness and altered mental status. According to the right, patient has been progressively getting weak to the point that she cannot care for him. She also noticed altered mental status over the same period of time. As a result, EMS was called to bring the patient to our ED for further evaluation and treatments. He was found to be desaturating on room air so oxygen mask was offered and he was up to 15 L/min of oxygen at that point in the ED. Rest of the vital signs within normal limits. CBC pending at the moment. Chemistry showing serum creatinine of 2.1 with baseline 1.8. D-dimer elevated to 2.49. Lactic acid 1.9 with repeat 0.6. Urinalysis suggesting the presence of urinary tract infections. CT of the head without contrast did not show any acute intracranial pathologies. CTA chest abdomen pelvis showing negative PE, otherwi se left sided multifocal infiltrate consistent with pneumonia. No acute intra- abdominal or pelvic pathologies. 05/27: Afebrile overnight. Patient is currently on 2 and half liters of nasal cannula oxygen but desaturating at 85% so will likely be switched to oxygen mask. Blood culture growing gram-negative bacillus. WBC this morning 21.9. MRSA screening negative. [place] pending. Patient is complaining of shortness of breath, nonproductive cough, negative respiratory wheezings. He is coming of mild chest pain. He denies any subjective fever chills or diaphoresis. Continue supplemental oxygen therapy titrate to maintain SPO2 above 92%. DC vancomycin while continuing meropenem. Repeat blood culture x2 on 05/28/22. 2D echocardiogram to rule out endocarditis. Keep the patient n.p.o. status: Continue D5 LR at 100 cc/h, pending speech therapy swallowing evaluations. Pending physical therapy evaluation and treatment for placement planning. 05/28: Fever with Tmax 39.7 overnight. Patient is currently on 2L/min oxygen via nasal cannula. Both initial blood and urine cultures grew E coli. WBC trends down from 21.9 to 10.7. 2D echocardiogram did not reveal endocardial vegetations. [place] negative. Patient is c/o abdominal distention pain. Denies shortness of breath, cough, or wheezing. He denies any subjective fever chills or diaphoresis. 05/29 Patient started spiking fevers yesterday and the day before. Concern for aspiration. Patient awaiting barium's eval with speech today. Patient denies any new complaints or overnight events. Blood cultures drawn yesterday. White blood cell count normal today. Hyponatremic on labs today. D5 water started. Creatinine looks low but better than yesterday. Blood pressures been elevated. IV as needed's currently while NPO. 05/30 Patient failed barium swallow with speech therapy yesterday. Patient not safe to take orally. We will have a care conference with patient family today to address direction of care. Potential for PEG tube at this is the direction the family like to take. Slept well. No overnight events or new complaints. Had a discussion with the and family members about his direction of care. Given his degree of dementia the goals of care were discussed with his as the decision maker. I discussed the results of the barium study and what that meant as far as risk of aspiration. Then discussed the options: PEG tube placement vs leaving the [place] in for a week and having speech therapy reevaluate him in hopes of seeing improvement enough to place on a dysphagia diet vs no feeding tubes and likely referral to hospice. Family would like to try to leave the [place] and for now and have speech therapy follow-up with them outpatient and reevaluate him and then make their decision whether or not to go PEG tube route or or hospice route. 05/31 Sleeping. No overnight event or new complaints. Continue tube feeds and case management working on placement. Renal function stable. 06/01 Patient awake and alert and seems to be doing well. No new complaints. Sodium within normal limits and renal function stable. Tube feedings in place. Review of Systems: denies headache/fever/chills/nausea/vomiting/chest or abdominal pain/cough/dyspnea/diarrhea. Otherwise see above. Constitutional Vitals: Vital Signs Temp Pulse Resp BP Pulse Ox O2 Del Method O2 Flow Rate 99.2 F H 96 H 16 148/80 94 2 06/01/22 07:42 06/01/22 07:42 06/01/22 07:42 06/01/22 07:42 06/01/22 07:42 06/01/22 07:42 05/30/22 05:00 Period Temp Pulse Resp BP Sys/Esposito Pulse Ox O2 Del Method O2 Flow Rate Last 24 Hr 98.1 F-99.2 F 76-96 16-16 123-174/69-95 93-97 Room Air-Room Air Intake and Output 05/31/22 06/01/22 06/01/22 21:59 05:59 13:59 Intake Total 1423 807 100 Output Total 575 600 Balance 848 207 100 Weight 69.116 kg Intake & Output: Intake & Output 05/31/22 06/01/22 06/01/22 21:59 05:59 13:59 Intake Total 1423 807 100 Output Total 575 600 Balance 848 207 100 Weight 69.116 kg Intake: IV 600 100 100 Dextrose 5% in Water 500 ml @ 500 100 mls/hr IV .Q5H ONE Rx#: [id number] Tube Feeding 623 507 GI Tube Flush 200 200 Output: Urine Catheter Amount 575 600 Other: Urine Appearance Uretheral (Workman) Clear Urine Color Uretheral (Workman) Yellow Exam: General: Awake, No acute Distress Eyes/N/T: Head/Neck: neck supple, CV: RRR, No murmurs, Pulm: Clear breath sounds b/l anteriorly, no wheezing Abd: soft, nontender, +BS x4 Ext: no clubbing/cyanosis/edema, right aka Neuro: Alert, no focal deficits, moves all extremities, Skin: warm/dry OBJ DATA Labs CBC & Chem 7: 05/29/22 05:26 05/31/22 06:12 Labs: Abnormal Lab Results 05/31/22 05/30/22 05/30/22 06:12 06:32 06:32 POC Hct POC Sodium Anion Gap 7.0 L POC BUN BUN 33 H 26 H Creatinine 1.6 H 1.6 H POC Creatinine Glucose 129 H 125 H POC Glucose POC WB Ioniz Calcium Albumin 3.0 L Albumin/Globulin Ratio 0.9 L Prealbumin Triglycerides 156 H Procalcitonin 0.54 H 05/29/22 05/29/22 05/29/22 20:11 16:55 14:36 POC Hct 36.0 L 33.0 L 36.0 L POC Sodium 146 H 147 H Anion Gap POC BUN 23 H 23 H 24 H BUN Creatinine POC Creatinine 1.5 H 1.5 H 1.5 H Glucose POC Glucose 108 H 108 H 111 H POC WB Ioniz Calcium 1.11 L 1.11 L Albumin Albumin/Globulin Ratio Prealbumin Triglycerides Procalcitonin 05/29/22 05/29/22 14:36 12:21 POC Hct 34.0 L POC Sodium 147 H Anion Gap POC BUN 25 H BUN Creatinine POC Creatinine 1.5 H Glucose POC Glucose 125 H POC WB Ioniz Calcium 1.11 L Albumin Albumin/Globulin Ratio Prealbumin 15.0 L Triglycerides Procalcitonin Meds: Medications Acetaminophen (Acetaminophen 325 Mg Tablet) 650 mg PO Q6HP PRN; Protocol PRN Reason: Per Pain Protocol/Fever > 101 Albuterol/Ipratropium (Ipratropium/Albuterol 3 Ml Ampul.Neb) 3 ml NEB Q4HRT PRN PRN Reason: Wheezing Amitriptyline HCl (Amitriptyline 25 Mg Tablet) 50 mg PO [facility] Last Admin: 05/31/22 20:24 Dose: 50 mg Atorvastatin Calcium (Atorvastatin 10 Mg Tablet) 10 mg PO QDAY [facility] Last Admin: 05/31/22 09:00 Dose: 10 mg Carvedilol (Carvedilol 12.5 Mg Tablet) 25 mg PT BIDCC [facility] Last Admin: 05/31/22 17:10 Dose: 25 mg Chlorhexidine Gluconate (Chlorhexidine Gluconate 1 Ml Oral.Sepideh) 15 ml [place]AB[place]OUTH BID [facility] Last Admin: 05/31/22 20:26 Dose: 15 ml Clopidogrel Bisulfate (Clopidogrel 75 Mg Tablet) 75 mg PO QDAY [facility] Last Admin: 05/31/22 09:00 Dose: 75 mg Docusate Sodium (Docusate Sodium 10 Mg/Ml Ml) 100 mg PT BID [facility] Last Admin: 05/31/22 20:25 Dose: 100 mg Doxazosin Mesylate (Doxazosin 4 Mg Tablet) 4 mg PO QHS [facility] Last Admin: 05/31/22 20:24 Dose: 4 mg Duloxetine HCl (Duloxetine 30 Mg Capsule) 30 mg PT QDAY [facility] Last Admin: 05/31/22 09:00 Dose: 30 mg Ferrous Sulfate (Ferrous Sulfate 325 Mg Tablet) 325 mg PO QAC [facility] Last Admin: 05/31/22 08:05 Dose: Not Given Heparin Sodium (Porcine) (Heparin 5,000 Unit/Ml Vial) 5,000 unit SQ Q12 [facility] Last Admin: 05/31/22 20:26 Dose: 5,000 unit Hydralazine HCl (Hydralazine 20 Mg/Ml Vial) 0 mg IV Q2HP PRN PRN Reason: Hypertension Last Admin: 06/01/22 03:31 Dose: 10 mg Acetaminophen (Ofirmev) 650 mg in 65 mls @ 130 mls/hr IV Q6HP PRN; Protocol PRN Reason: PAIN/FEVER > 101 Last Infusion: 05/29/22 01:00 Dose: Infused Levofloxacin (Levaquin) 750 mg in 150 mls @ 100 mls/hr IV Q48H [facility] Last Infusion: 05/31/22 12:16 Dose: Infused Metronidazole (Flagyl) 500 mg in 100 mls @ 100 mls/hr IV Q8H [facility]; Protocol Last Infusion: 06/01/22 06:23 Dose: Infused Labetalol HCl (Labetalol 5 Mg/Ml Ml) 0 mg IV Q2HP PRN PRN Reason: Hypertension Last Admin: 05/30/22 03:25 Dose: 20 mg Lactulose (Lactulose 20 Gm/30 Ml Oral.Sepideh) 10 gm PO DAILYP PRN PRN Reason: Constipation Ondansetron HCl (Ondansetron 4 Mg/2 Ml Vial) 4 mg IV Q4HP PRN; Protocol PRN Reason: Nausea And Vomiting Pantoprazole Sodium (Pantoprazole 40 Mg Packet) 40 mg PT QAMAC [facility] Last Admin: 05/31/22 10:23 Dose: 40 mg Paliperidone 3 Mg Tablet Extended Release 24hr 1 dose PO HS [facility] Last Admin: 05/31/22 20:24 Dose: 1 dose Senna (Sennosides 8.8 Mg/5 Ml Ml) 8.8 mg PT HSP PRN PRN Reason: Constipation Sodium Biphosphate/Sodium Phosphate (Fleets Adult Enema) 1 dose [place] DAILYP PRN PRN Reason: Constipation Last Admin: 05/28/22 16:36 Dose: 1 dose Sodium Chloride (0.9 % Sodium Chloride 10 Ml Syringe) 10 ml IV Q8 [facility] Last Admin: 06/01/22 05:09 Dose: 10 ml Vitamin D (Vitamin D3 25 Mcg Tablet) 50 mcg PO DAILY [facility] Last Admin: 05/31/22 09:00 Dose: 50 mcg A/P Narrative A/P Narrative: Assessment: *PNA, Aspiration: -afebrile *Oropharyngeal Dysphagia, Severe: -pt not safe to take orally *Acute hypoxic respiratory failure: 2/2 above -now on room air *UTI (E. coli): *Bacteremia (E. coli): *RADHA on CKD IIIb: slowly improving appears to be at baseline *HYpernatremia: improved *h/o CAD: *HTN: elevated and says has been running high at home *Dementia: *Poor functional status: *Goals of care: Family would like to try reevaluation by speech therapy outpatient before decision on PEG vs no feeding tube P: -NPO, TF's until while goals of care discussion in place -f/u with Speech therapy 5-7 days to determine if swallow fxn improved enough for oral diet -cont levoquin for e. coli bacteremia 7-10 day course, currently also on flagyl for aspirtion pna -Supplemental oxygen prn -Avoid nephrotoxic agents -switched metoprolol to coreg for better bp control, titrate as needed or add additional -cont ASA/Plavix/Statin -CM for placement -ppx: Heparin Code status: DNR Time Spent With Patient Time: Total time spent is greater than 50% in coordination of care (as documented) at patient's floor/unit and/or counseling patient: Total time spent with greater than 50% in coordination of care (as documented) at patient's floor/unit and/or counseling patient:: 25 - 35 minutes QUALITY VTE Deep Vein Thrombosis/Pulmonary Embolism Present on Admission: No
[2022-06-01] MEDS: ATORVASTATIN 10 MG TABLET PO SCH (08:30)
[2022-06-01] MEDS: PANTOPRAZOLE 40 MG PACKET PT SCH (08:30)
[2022-06-01] MEDS: VITAMIN D3 25 MCG TABLET PO SCH (08:30)
[2022-06-01] MEDS: DULoxetine 30 MG CAPSULE PT SCH (08:30)
[2022-06-01] MEDS: CARVEDILOL 12.5 MG TABLET PT SCH ×2 (08:30→18:33)
[2022-06-01] MEDS: CLOPIDOGREL 75 MG TABLET PO SCH (08:30)
[2022-06-01] MEDS: CHLORHEXIDINE GLUCONATE 1 ML ORAL.SOL SWABMOUTH SCH ×2 (08:31→21:02)
[2022-06-01] MEDS: HEPARIN 5,000 UNIT/ML VIAL SQ SCH ×2 (08:31→21:03)
[2022-06-01] MEDS: FERROUS SULFATE 325 MG TABLET PO SCH (08:31)
[2022-06-01] MEDS: DOCUSATE SODIUM 10 MG/ML ML PT SCH ×2 (08:31→21:02)
[2022-06-01] MEDS: metroNIDAZOLE 500 MG TABLET PO SCH ×2 (15:04→21:04)
[2022-06-01] MEDS: PALIPERIDONE 3 MG PO SCH (21:02)
[2022-06-01] MEDS: AMITRIPTYLINE 25 MG TABLET PO SCH (21:02)
[2022-06-01] MEDS: DOXAZOSIN 4 MG TABLET PO SCH (21:03)
[2022-06-02] MEDS: hydrALAZINE 20 MG/ML VIAL IV PRN (04:09)
[2022-06-02] MEDS: 0.9 % SODIUM CHLORIDE 10 ML SYRINGE IV SCH ×3 (04:10→20:15)
[2022-06-02] MEDS: metroNIDAZOLE 500 MG TABLET PO SCH ×3 (04:57→20:15)
[2022-06-02] MEDS: PANTOPRAZOLE 40 MG PACKET PT SCH (07:19)
--- NOTE | 2022-06-02 07:27 | Internal Med Progress Note ---
SUBJECTIVE Subjective Patient information: Note initiated : 06/02/22 at 7:27 am Service Date, if different from initiated Date: [] Patient: Rich Jasmine a 72 y/o M admitted on 05/26/22 for altered LOC-PNA,UTI. Chief Complaint: [] Interval history: Mr. Jasmine is a 72 year old M history of right AKA, BPH, hypertensions with chronic kidney disease, CAD, presenting with 3-day history of general body weakness and altered mental status. According to the right, patient has been progressively getting weak to the point that she cannot care for him. She also noticed altered mental status over the same period of time. As a result, EMS was called to bring the patient to our ED for further evaluation and treatments. He was found to be desaturating on room air so oxygen mask was offered and he was up to 15 L/min of oxygen at that point in the ED. Rest of the vital signs within normal limits. CBC pending at the moment. Chemistry showing serum creatinine of 2.1 with baseline 1.8. D-dimer elevated to 2.49. Lactic acid 1.9 with repeat 0.6. Urinalysis suggesting the presence of urinary tract infections. CT of the head without contrast did not show any acute intracranial pathologies. CTA chest abdomen pelvis showing negative PE, otherwi se left sided multifocal infiltrate consistent with pneumonia. No acute intra- abdominal or pelvic pathologies. 05/27: Afebrile overnight. Patient is currently on 2 and half liters of nasal cannula oxygen but desaturating at 85% so will likely be switched to oxygen mask. Blood culture growing gram-negative bacillus. WBC this morning 21.9. MRSA screening negative. [place] pending. Patient is complaining of shortness of breath, nonproductive cough, negative respiratory wheezings. He is coming of mild chest pain. He denies any subjective fever chills or diaphoresis. Continue supplemental oxygen therapy titrate to maintain SPO2 above 92%. DC vancomycin while continuing meropenem. Repeat blood culture x2 on 05/28/22. 2D echocardiogram to rule out endocarditis. Keep the patient n.p.o. status: Continue D5 LR at 100 cc/h, pending speech therapy swallowing evaluations. Pending physical therapy evaluation and treatment for placement planning. 05/28: Fever with Tmax 39.7 overnight. Patient is currently on 2L/min oxygen via nasal cannula. Both initial blood and urine cultures grew E coli. WBC trends down from 21.9 to 10.7. 2D echocardiogram did not reveal endocardial vegetations. [place] negative. Patient is c/o abdominal distention pain. Denies shortness of breath, cough, or wheezing. He denies any subjective fever chills or diaphoresis. 05/29 Patient started spiking fevers yesterday and the day before. Concern for aspiration. Patient awaiting barium's eval with speech today. Patient denies any new complaints or overnight events. Blood cultures drawn yesterday. White blood cell count normal today. Hyponatremic on labs today. D5 water started. Creatinine looks low but better than yesterday. Blood pressures been elevated. IV as needed's currently while NPO. 05/30 Patient failed barium swallow with speech therapy yesterday. Patient not safe to take orally. We will have a care conference with patient family today to address direction of care. Potential for PEG tube at this is the direction the family like to take. Slept well. No overnight events or new complaints. Had a discussion with the and family members about his direction of care. Given his degree of dementia the goals of care were discussed with his as the decision maker. I discussed the results of the barium study and what that meant as far as risk of aspiration. Then discussed the options: PEG tube placement vs leaving the [place] in for a week and having speech therapy reevaluate him in hopes of seeing improvement enough to place on a dysphagia diet vs no feeding tubes and likely referral to hospice. Family would like to try to leave the [place] and for now and have speech therapy follow-up with them outpatient and reevaluate him and then make their decision whether or not to go PEG tube route or or hospice route. 05/31 Sleeping. No overnight event or new complaints. Continue tube feeds and case management working on placement. Renal function stable. 06/01 Patient awake and alert and seems to be doing well. No new complaints. Sodium within normal limits and renal function stable. Tube feedings in place. 06/02 Patient sleeping. at bedside. No overnight event or new complaints. Review of Systems: Constitutional Vitals: Vital Signs Temp Pulse Resp BP Pulse Ox O2 Del Method O2 Flow Rate 97.3 F 95 H 14 133/68 94 2 06/02/22 03:55 06/02/22 03:55 06/02/22 03:55 06/02/22 05:07 06/02/22 03:55 06/02/22 03:55 05/30/22 05:00 Period Temp Pulse Resp BP Sys/Esposito Pulse Ox O2 Del Method O2 Flow Rate Last 24 Hr 97.3 F-99.5 F 80-95 14-18 109-166/59-96 91-95 Room Air-Room Air Intake and Output 06/01/22 06/02/22 06/02/22 22:59 05:59 13:59 Intake Total Output Total Balance Weight Intake & Output: Intake & Output 06/01/22 06/02/22 06/02/22 22:59 05:59 13:59 Intake Total Output Total Balance Weight Intake: Tube Feeding GI Tube Flush Output: Urine Catheter Amount Other: Urine Appearance Uretheral (Workman) Urine Color Uretheral (Workman) Exam: General: Sleeping, No acute Distress Eyes/N/T: Head/Neck: neck supple, CV: RRR, No murmurs, Pulm: Clear breath sounds b/l anteriorly, no wheezing Abd: soft, nontender, +BS x4 Ext: no clubbing/cyanosis/edema, right aka Neuro: Sleeping no focal deficits, moves all extremities, Skin: warm/dry OBJ DATA Labs CBC & Chem 7: 05/29/22 05:26 05/31/22 06:12 Labs: Abnormal Lab Results 05/31/22 06:12 Anion Gap 7.0 L BUN 33 H Creatinine 1.6 H Glucose 129 H Meds: Medications Acetaminophen (Acetaminophen 325 Mg Tablet) 650 mg PO Q6HP PRN; Protocol PRN Reason: Per Pain Protocol/Fever > 101 Albuterol/Ipratropium (Ipratropium/Albuterol 3 Ml Ampul.Neb) 3 ml NEB Q4HRT PRN PRN Reason: Wheezing Amitriptyline HCl (Amitriptyline 25 Mg Tablet) 50 mg PO HS [facility] Last Admin: 06/01/22 21:02 Dose: 50 mg Atorvastatin Calcium (Atorvastatin 10 Mg Tablet) 10 mg PO QDAY [facility] Last Admin: 06/01/22 08:30 Dose: 10 mg Carvedilol (Carvedilol 12.5 Mg Tablet) 25 mg PT BIDCC [facility] Last Admin: 06/01/22 18:33 Dose: 25 mg Chlorhexidine Gluconate (Chlorhexidine Gluconate 1 Ml Oral.Sepideh) 15 ml SWABMOUTH BID [facility] Last Admin: 06/01/22 21:02 Dose: 15 ml Clopidogrel Bisulfate (Clopidogrel 75 Mg Tablet) 75 mg PO QDAY [facility] Last Admin: 06/01/22 08:30 Dose: 75 mg Docusate Sodium (Docusate Sodium 10 Mg/Ml Ml) 100 mg PT BID [facility] Last Admin: 06/01/22 21:02 Dose: 100 mg Doxazosin Mesylate (Doxazosin 4 Mg Tablet) 4 mg PO QHS [facility] Last Admin: 06/01/22 21:03 Dose: 4 mg Duloxetine HCl (Duloxetine 30 Mg Capsule) 30 mg PT QDAY [facility] Last Admin: 06/01/22 08:30 Dose: 30 mg Ferrous Sulfate (Ferrous Sulfate 325 Mg Tablet) 325 mg PO QAC [facility] Last Admin: 06/01/22 08:31 Dose: Not Given Heparin Sodium (Porcine) (Heparin 5,000 Unit/Ml Vial) 5,000 unit SQ Q12 [facility] Last Admin: 06/01/22 21:03 Dose: 5,000 unit Hydralazine HCl (Hydralazine 20 Mg/Ml Vial) 0 mg IV Q2HP PRN PRN Reason: Hypertension Last Admin: 06/02/22 04:09 Dose: 10 mg Acetaminophen (Ofirmev) 650 mg in 65 mls @ 130 mls/hr IV Q6HP PRN; Protocol PRN Reason: PAIN/FEVER > 101 Last Infusion: 05/29/22 01:00 Dose: Infused Levofloxacin (Levaquin) 750 mg in 150 mls @ 100 mls/hr IV Q48H [facility] Last Infusion: 05/31/22 12:16 Dose: Infused Labetalol HCl (Labetalol 5 Mg/Ml Ml) 0 mg IV Q2HP PRN PRN Reason: Hypertension Last Admin: 05/30/22 03:25 Dose: 20 mg Lactulose (Lactulose 20 Gm/30 Ml Oral.Sepideh) 10 gm PO DAILYP PRN PRN Reason: Constipation Metronidazole (Metronidazole 500 Mg Tablet) 500 mg PO Q8 [facility]; Protocol Last Admin: 06/02/22 04:57 Dose: 500 mg Ondansetron HCl (Ondansetron 4 Mg/2 Ml Vial) 4 mg IV Q4HP PRN; Protocol PRN Reason: Nausea And Vomiting Pantoprazole Sodium (Pantoprazole 40 Mg Packet) 40 mg PT QAMAC [facility] Last Admin: 06/02/22 07:19 Dose: 40 mg Paliperidone 3 Mg Tablet Extended Release 24hr 1 dose PO HS [facility] Last Admin: 06/01/22 21:02 Dose: 1 dose Senna (Sennosides 8.8 Mg/5 Ml Ml) 8.8 mg PT HSP PRN PRN Reason: Constipation Sodium Biphosphate/Sodium Phosphate (Fleets Adult Enema) 1 dose ID DAILYP PRN PRN Reason: Constipation Last Admin: 05/28/22 16:36 Dose: 1 dose Sodium Chloride (0.9 % Sodium Chloride 10 Ml Syringe) 10 ml IV Q8 [facility] Last Admin: 06/02/22 04:10 Dose: 10 ml Vitamin D (Vitamin D3 25 Mcg Tablet) 50 mcg PO DAILY [facility] Last Admin: 06/01/22 08:30 Dose: 50 mcg A/P Narrative A/P Narrative: Assessment: *PNA, Aspiration: *Oropharyngeal Dysphagia, Severe: -pt not safe to take orally *Acute hypoxic respiratory failure: 2/2 above -now on room air *UTI (E. coli): *Bacteremia (E. coli): *RADHA on CKD IIIb: slowly improving appears to be at baseline *HYpernatremia: improved *h/o CAD: *HTN: elevated and says has been running high at home *Dementia: *Poor functional status: *Goals of care: Family would like to try reevaluation by speech therapy outpatient before decision on PEG vs no feeding tube P: -NPO, TF's -f/u with Speech therapy 5-7 days to determine if swallow fxn improved enough for oral diet -cont Levaquin for e. coli bacteremia 7-10 day course, currently also on flagyl for aspirtion pna -Supplemental oxygen prn -Avoid nephrotoxic agents -switched metoprolol to coreg for better bp control, titrate as needed or add additional -cont ASA/Plavix/Statin -CM for placement -ppx: Heparin Code status: DNR Time Spent With Patient Time: Total time spent is greater than 50% in coordination of care (as documented) at patient's floor/unit and/or counseling patient: QUALITY VTE Deep Vein Thrombosis/Pulmonary Embolism Present on Admission: No
[2022-06-02] MEDS: CLOPIDOGREL 75 MG TABLET PO SCH (09:39)
[2022-06-02] MEDS: DULoxetine 30 MG CAPSULE PT SCH (09:39)
[2022-06-02] MEDS: ATORVASTATIN 10 MG TABLET PO SCH (09:40)
[2022-06-02] MEDS: CARVEDILOL 12.5 MG TABLET PT SCH ×2 (09:40→16:50)
[2022-06-02] MEDS: VITAMIN D3 25 MCG TABLET PO SCH (09:40)
[2022-06-02] MEDS: FERROUS SULFATE 325 MG TABLET PO SCH (09:40)
[2022-06-02] MEDS: HEPARIN 5,000 UNIT/ML VIAL SQ SCH ×2 (09:40→20:15)
[2022-06-02] MEDS: CHLORHEXIDINE GLUCONATE 1 ML ORAL.SOL SWABMOUTH SCH ×2 (09:56→20:14)
[2022-06-02] MEDS: DOCUSATE SODIUM 10 MG/ML ML PT SCH ×2 (09:56→20:15)
[2022-06-02] MEDS: LEVOFLOXACIN 750 MG/150 ML BAG IV SCH (09:56)
--- NOTE | 2022-06-02 15:02 | Internal Med Progress Note ---
SUBJECTIVE Subjective Patient information: Note initiated : 06/02/22 at 3:01 pm Service Date, if different from initiated Date: [] Patient: Rich Jasmine 72 y/o M admitted on 05/26/22 for altered LOC-PNA,UTI. Chief Complaint: [] Interval history: 06/03 Physical exam Head: Atraumatic, normal inspection. Eyes: normal appearance, no scleral icterus. Neck: full ROM Respiratory: no respiratory distress. Cardiovascular: normal rate and rhythm, S1, S2. GI/Abdominal: soft, nontender, no guarding. Extremities: full range of motion, nontender. Neurological: CN II-XII intact, intact motor, intact sensation. Psychiatric: normal mood. Skin: warm, normal color Constitutional Vitals: Vital Signs Temp Pulse Resp BP Pulse Ox O2 Del Method O2 Flow Rate 99.2 F H 82 21 129/70 94 2 06/02/22 11:43 06/02/22 11:43 06/02/22 11:43 06/02/22 11:43 06/02/22 11:43 06/02/22 11:43 05/30/22 05:00 Period Temp Pulse Resp BP Sys/Esposito Pulse Ox O2 Del Method O2 Flow Rate Last 24 Hr 97.3 F-99.4 F 82-100 14-21 109-166/59-89 91-95 Room Air-Room Air Intake and Output 06/02/22 06/02/22 06/02/22 05:59 13:59 21:59 Intake Total 150 Output Total Balance 150 Intake & Output: Intake & Output 06/02/22 06/02/22 06/02/22 05:59 13:59 21:59 Intake Total 150 Output Total Balance 150 Intake: IV 150 Tube Feeding GI Tube Flush Output: Urine Catheter Amount Other: Urine Appearance Uretheral (Workman) Clear Urine Color Uretheral (Workman) Yellow Urine Odor Uretheral (Workman) Normal OBJ DATA Labs CBC & Chem 7: 05/29/22 05:26 05/31/22 06:12 Labs: Abnormal Lab Results 05/31/22 06:12 Anion Gap 7.0 L BUN 33 H Creatinine 1.6 H Glucose 129 H Meds: Medications Acetaminophen (Acetaminophen 325 Mg Tablet) 650 mg PO Q6HP PRN; Protocol PRN Reason: Per Pain Protocol/Fever > 101 Albuterol/Ipratropium (Ipratropium/Albuterol 3 Ml Ampul.Neb) 3 ml NEB Q4HRT PRN PRN Reason: Wheezing Amitriptyline HCl (Amitriptyline 25 Mg Tablet) 50 mg PO HS [facility] Last Admin: 06/01/22 21:02 Dose: 50 mg Atorvastatin Calcium (Atorvastatin 10 Mg Tablet) 10 mg PO QDAY [facility] Last Admin: 06/02/22 09:40 Dose: 10 mg Carvedilol (Carvedilol 12.5 Mg Tablet) 25 mg PT BIDCC [facility] Last Admin: 06/02/22 09:40 Dose: 25 mg Chlorhexidine Gluconate (Chlorhexidine Gluconate 1 Ml Oral.Sepideh) 15 ml SWABMOUTH BID [facility] Last Admin: 06/02/22 09:56 Dose: 15 ml Clopidogrel Bisulfate (Clopidogrel 75 Mg Tablet) 75 mg PO QDAY [facility] Last Admin: 06/02/22 09:39 Dose: 75 mg Docusate Sodium (Docusate Sodium 10 Mg/Ml Ml) 100 mg PT BID [facility] Last Admin: 06/02/22 09:56 Dose: 100 mg Doxazosin Mesylate (Doxazosin 4 Mg Tablet) 4 mg PO QHS [facility] Last Admin: 06/01/22 21:03 Dose: 4 mg Duloxetine HCl (Duloxetine 30 Mg Capsule) 30 mg PT QDAY [facility] Last Admin: 06/02/22 09:39 Dose: 30 mg Ferrous Sulfate (Ferrous Sulfate 325 Mg Tablet) 325 mg PO QAC [facility] Last Admin: 06/02/22 09:40 Dose: 325 mg Heparin Sodium (Porcine) (Heparin 5,000 Unit/Ml Vial) 5,000 unit SQ Q12 [facility] Last Admin: 06/02/22 09:40 Dose: 5,000 unit Hydralazine HCl (Hydralazine 20 Mg/Ml Vial) 0 mg IV Q2HP PRN PRN Reason: Hypertension Last Admin: 06/02/22 04:09 Dose: 10 mg Acetaminophen (Ofirmev) 650 mg in 65 mls @ 130 mls/hr IV Q6HP PRN; Protocol PRN Reason: PAIN/FEVER > 101 Last Infusion: 05/29/22 01:00 Dose: Infused Levofloxacin (Levaquin) 750 mg in 150 mls @ 100 mls/hr IV Q48H [facility] Last Infusion: 06/02/22 14:16 Dose: Infused Labetalol HCl (Labetalol 5 Mg/Ml Ml) 0 mg IV Q2HP PRN PRN Reason: Hypertension Last Admin: 05/30/22 03:25 Dose: 20 mg Lactulose (Lactulose 20 Gm/30 Ml Oral.Sepideh) 10 gm PO DAILYP PRN PRN Reason: Constipation Metronidazole (Metronidazole 500 Mg Tablet) 500 mg PO Q8 [facility]; Protocol Last Admin: 06/02/22 14:12 Dose: 500 mg Ondansetron HCl (Ondansetron 4 Mg/2 Ml Vial) 4 mg IV Q4HP PRN; Protocol PRN Reason: Nausea And Vomiting Pantoprazole Sodium (Pantoprazole 40 Mg Packet) 40 mg PT QAMAC [facility] Last Admin: 06/02/22 07:19 Dose: 40 mg Paliperidone 3 Mg Tablet Extended Release 24hr 1 dose PO HS [facility] Last Admin: 06/01/22 21:02 Dose: 1 dose Senna (Sennosides 8.8 Mg/5 Ml Ml) 8.8 mg PT HSP PRN PRN Reason: Constipation Sodium Biphosphate/Sodium Phosphate (Fleets Adult Enema) 1 dose FL DAILYP PRN PRN Reason: Constipation Last Admin: 05/28/22 16:36 Dose: 1 dose Sodium Chloride (0.9 % Sodium Chloride 10 Ml Syringe) 10 ml IV Q8 [facility] Last Admin: 06/02/22 14:12 Dose: 10 ml Vitamin D (Vitamin D3 25 Mcg Tablet) 50 mcg PO DAILY [facility] Last Admin: 06/02/22 09:40 Dose: 50 mcg A/P Narrative A/P Narrative: Assessment: *PNA, Aspiration: *Oropharyngeal Dysphagia, Severe: -pt not safe to take orally *Acute hypoxic respiratory failure: 2/2 above -now on room air *UTI (E. coli): *Bacteremia (E. coli): *RADHA on CKD IIIb: slowly improving appears to be at baseline *HYpernatremia: improved *h/o CAD: *HTN: elevated and says has been running high at home *Dementia: *Poor functional status: *Goals of care: Family would like to try reevaluation by speech therapy outpatient before decision on PEG vs no feeding tube P: -NPO, TF's -f/u with Speech therapy 5-7 days to determine if swallow fxn improved enough for oral diet -cont Levaquin for e. coli bacteremia 7-10 day course, currently also on flagyl for aspirtion pna -Supplemental oxygen prn -Avoid nephrotoxic agents -switched metoprolol to coreg for better bp control, titrate as needed or add additional -cont ASA/Plavix/Statin -CM for placement -ppx: Heparin Code status: DNR Time Spent With Patient Time: Total time spent is greater than 50% in coordination of care (as documented) at patient's floor/unit and/or counseling patient: QUALITY VTE Deep Vein Thrombosis/Pulmonary Embolism Present on Admission: No
[2022-06-02] MEDS: PALIPERIDONE 3 MG PO SCH (20:14)
[2022-06-02] MEDS: AMITRIPTYLINE 25 MG TABLET PO SCH (20:14)
[2022-06-02] MEDS: DOXAZOSIN 4 MG TABLET PO SCH (20:14)
[2022-06-03] MEDS: metroNIDAZOLE 500 MG TABLET PO SCH ×3 (04:33→21:55)
[2022-06-03] MEDS: 0.9 % SODIUM CHLORIDE 10 ML SYRINGE IV SCH ×3 (04:34→20:23)
[2022-06-03] MEDS: PANTOPRAZOLE 40 MG PACKET PT SCH (07:25)
[2022-06-03] MEDS: HEPARIN 5,000 UNIT/ML VIAL SQ SCH ×2 (09:38→20:23)
[2022-06-03] MEDS: CARVEDILOL 12.5 MG TABLET PT SCH ×2 (09:39→18:12)
[2022-06-03] MEDS: CLOPIDOGREL 75 MG TABLET PO SCH (09:39)
[2022-06-03] MEDS: VITAMIN D3 25 MCG TABLET PO SCH (09:39)
[2022-06-03] MEDS: ATORVASTATIN 10 MG TABLET PO SCH (09:40)
[2022-06-03] MEDS: FERROUS SULFATE 325 MG TABLET PO SCH (09:40)
[2022-06-03] MEDS: CHLORHEXIDINE GLUCONATE 1 ML ORAL.SOL SWABMOUTH SCH ×2 (09:41→20:23)
[2022-06-03] MEDS: DULoxetine 30 MG CAPSULE PT SCH (09:41)
[2022-06-03] MEDS: DOCUSATE SODIUM 10 MG/ML ML PT SCH ×2 (09:41→20:23)
--- NOTE | 2022-06-03 10:37 | Discharge Summary ---
Discharge Provider Provider IMPORTANT FOLLOW-UP INFORMATION FOR PCP: Patient information: Note initiated : 06/03/22 at 10:36 am Service Date, if different from initiated Date: [] Patient: Rich Jasmine 72 y/o M admitted on 05/26/22 for altered LOC-PNA,UTI. Chief Complaint: [] Date of admission: 05/26/22 21:46 Discharge date: 06/03/22 Primary care physician: Calli Ordaz Consults: 05/26/22 Consult to Physician [CONS] Stat Comment: Consulting Provider: Ajit Griffiths Reason For Exam: Physician to Consult 05/27/22 15:16 Consult to Physician [CONS] Routine Comment: snf referral Consulting Provider: [facility] [place] Reason For Exam: Physician to Consult 05/31/22 08:45 Consult to Physician [CONS] Routine Comment: snf referral Consulting Provider: [facility] [place] Reason For Exam: Physician to Consult COURSE Hospital Course Hospital course: Mr. Jasmine is a 72 year old M history of right AKA, BPH, hypertensions with chronic kidney disease, CAD, presenting with 3-day history of general body weakness and altered mental status. According to the right, patient has been progressively getting weak to the point that she cannot care for him. She also noticed altered mental status over the same period of time. As a result, EMS was called to bring the patient to our ED for further evaluation and treatments. He was found to be desaturating on room air so oxygen mask was offered and he was up to 15 L/min of oxygen at that point in the ED. Rest of the vital signs within normal limits. CBC pending at the moment. Chemistry showing serum creatinine of 2.1 with baseline 1.8. D-dimer elevated to 2.49. Lactic acid 1.9 with repeat 0.6. Urinalysis suggesting the presence of urinary tract infections. CT of the head without contrast did not show any acute intracranial pathologies. CTA chest abdomen pelvis showing negative PE, otherwise left sided multifocal infiltrate consistent with pneumonia. No acute intra-abdominal or pelvic pathologies. 05/27: Afebrile overnight. Patient is currently on 2 and half liters of nasal cannula oxygen but desaturating at 85% so will likely be switched to oxygen mask. Blood culture growing gram-negative bacillus. WBC this morning 21.9. MRSA screening negative. Scott pending. Patient is complaining of shortness of breath, nonproductive cough, negative respiratory wheezings. He is coming of mild chest pain. He denies any subjective fever chills or diaphoresis. Continue supplemental oxygen therapy titrate to maintain SPO2 above 92%. DC vancomycin while continuing meropenem. Repeat blood culture x2 on 05/28/22. 2D echocardiogram to rule out endocarditis. Keep the patient n.p.o. status: Continue D5 LR at 100 cc/h, pending speech therapy swallowing evaluations. Pending physical therapy evaluation and treatment for placement planning. 05/28: Fever with Tmax 39.7 overnight. Patient is currently on 2L/min oxygen via nasal cannula. Both initial blood and urine cultures grew E coli. WBC trends down from 21.9 to 10.7. 2D echocardiogram did not reveal endocardial vegetations. Scott negative. Patient is c/o abdominal distention pain. Denies shortness of breath, cough, or wheezing. He denies any subjective fever chills or diaphoresis. 05/29 Patient started spiking fevers yesterday and the day before. Concern for aspiration. Patient awaiting barium's eval with speech today. Patient denies any new complaints or overnight events. Blood cultures drawn yesterday. White blood cell count normal today. Hyponatremic on labs today. D5 water started. Creatinine looks low but better than yesterday. Blood pressures been elevated. IV as needed's currently while NPO. 05/30 Patient failed barium swallow with speech therapy yesterday. Patient not safe to take orally. We will have a care conference with patient family today to address direction of care. Potential for PEG tube at this is the direction the family like to take. Slept well. No overnight events or new complaints. Had a discussion with the and family members about his direction of care. Given his degree of dementia the goals of care were discussed with his as the decision maker. I discussed the results of the barium study and what that meant as far as risk of aspiration. Then discussed the options: PEG tube placement vs leaving the Dobbhoff in for a week and having speech therapy reevaluate him in hopes of seeing improvement enough to place on a dysphagia diet vs no feeding tubes and likely referral to hospice. Family would like to try to leave the Dobbhoff and for now and have speech therapy follow-up with them outpatient and reevaluate him and then make their decision whether or not to go PEG tube route or or hospice route. 05/31 Sleeping. No overnight event or new complaints. Continue tube feeds and case management working on placement. Renal function stable. 06/01 Patient awake and alert and seems to be doing well. No new complaints. Sodium within normal limits and renal function stable. Tube feedings in place. 06/02 Patient sleeping. at bedside. No overnight event or new complaints. 06/03 [facility] Continue to tube feedings via Dobbhoff tube at discharge, n.p.o. status. Repeat speech therapy evaluation at [facility]. Continue antibiotics for 3 more days. Guarded prognosis. Discharge diagnosis: Aspiration pneumonia Secondary discharge diagnosis: Dysphagia Dementia Time Spent with Patient Time attestation: Total time spent providing and/or coordinating discharge services: Time spent: Greater than 30 minutes EXAM Constitutional Vitals: Temp Pulse Resp BP Pulse Ox O2 Del Method O2 Flow Rate 98.8 F 95 H 17 165/95 97 2 06/03/22 07:52 06/03/22 07:52 06/03/22 07:52 06/03/22 07:52 06/03/22 07:52 06/03/22 07:52 05/30/22 05:00 Discharge Plan Patient/Caregiver Discharge Instructions Activity: increase activity as tolerated Diet: NPO Activity Restrictions/Additional Instructions: Tube feedings per dietary recommendations. Speech therapy evaluation in 7 days. Prescriptions: New carvedilol 25 mg tablet 25 mg PO BIDCC Qty: 60 4RF metronidazole 500 mg Tablet 500 mg PO Q8 3 Days Qty: 9 0RF levofloxacin 750 mg tablet 750 mg PO QDAY 3 Days Qty: 3 0RF Continued clopidogrel 75 mg tablet 75 mg PO QDAY Label Comments: PCP Rx pantoprazole 40 mg tablet,delayed release (DR/EC) 40 mg PO QDAY Label Comments: PCP Rx amitriptyline 50 mg tablet 50 mg PO QHS Label Comments: PCP Rx atorvastatin 10 mg tablet 10 mg PO QDAY Label Comments: PCP RX duloxetine 30 mg capsule,delayed release(DR/EC) 30 mg PO QDAY paliperidone 3 mg tablet extended release 24hr 3 mg PO HS Label Comments: PCP Rx cholecalciferol (vitamin D3) 50 mcg (2,000 unit) capsule 2,000 unit PO QDAY Label Comments: PCP OTC RX Rx Instructions: administer with meals docusate sodium 100 mg capsule 100 mg PO QDAY doxazosin 4 mg tablet 4 mg PO QHS Qty: 30 11RF Rx Instructions: New dosage ferrous sulfate 325 mg (65 mg iron) Tablet 325 mg PO QDAY acetaminophen 500 mg Capsule 1,000 mg PO BID Discontinued metoprolol succinate [Toprol XL] 50 mg tablet extended release 24 hr 50 mg PO QDAY Other Ambulatory Orders: OT Discharge Order (Routine) Location: None Selected Ordered By: Jovany Best Physical Therapy at Discharge - General (Routine) Location: None Selected Ordered By: Jovany Best Follow Up Plan Follow up with: Calli Ordaz MD [Primary Care Provider] - Patient Disposition: Xfer SNF Prognosis: Undetermined Rehab Potential: Fair I certify that the patient requires SNF services: Yes Overall status at discharge: patient is progressing back to baseline Discharge Orders: Discharge Order (Routine); Ordered 06/03/22 Ordered By: Jovany Best QUALITY VTE Deep Vein Thrombosis/Pulmonary Embolism Present on Admission: No
--- NOTE | 2022-06-03 11:01 | Internal Med Progress Note ---
SUBJECTIVE Subjective Patient information: Note initiated : 06/03/22 at 10:57 am Service Date, if different from initiated Date: [] Patient: Rich Jasmine 72 y/o M admitted on 05/26/22 for altered LOC-PNA,UTI. Chief Complaint: [] Interval history: 06/03 No significant events overnight, continues to tolerate tube feedings well. Unable to discharge today to nursing home facility due to insurance coverage issues. Awaiting placement. Physical exam Head: Atraumatic, normal inspection. Eyes: normal appearance, no scleral icterus. Neck: full ROM Respiratory: no respiratory distress. Cardiovascular: normal rate and rhythm, S1, S2. GI/Abdominal: Dobbhoff tube, soft, nontender, no guarding. Extremities: full range of motion, nontender. Neurological: CN II-XII intact, intact motor, intact sensation. Psychiatric: Impaired cognition. Skin: warm, normal color Constitutional Vitals: Vital Signs Temp Pulse Resp BP Pulse Ox O2 Del Method O2 Flow Rate 98.8 F 95 H 17 165/95 97 2 06/03/22 07:52 06/03/22 07:52 06/03/22 07:52 06/03/22 07:52 06/03/22 07:52 06/03/22 07:52 05/30/22 05:00 Period Temp Pulse Resp BP Sys/Esposito Pulse Ox O2 Del Method O2 Flow Rate Last 24 Hr 97.6 F-99.2 F 82-95 17-21 116-165/66-95 92-97 Room Air-Room Air Intake and Output 06/02/22 06/03/22 06/03/22 21:59 05:59 13:59 Intake Total 1686 796 Output Total 650 600 Balance 1036 196 Weight 68.492 kg Intake & Output: Intake & Output 06/02/22 06/03/22 06/03/22 21:59 05:59 13:59 Intake Total 1686 796 Output Total 650 600 Balance 1036 196 Weight 68.492 kg Intake: IV 150 Tube Feeding 1036 596 GI Tube Flush 500 200 Output: Urine Catheter Amount 650 600 Other: Urine Appearance Clear Uretheral (Workman) Clear Urine Color Dark Yellow Uretheral (Workman) Yellow Urine Odor Normal OBJ DATA Labs CBC & Chem 7: 05/29/22 05:26 05/31/22 06:12 Meds: Medications Acetaminophen (Acetaminophen 325 Mg Tablet) 650 mg PO Q6HP PRN; Protocol PRN Reason: Per Pain Protocol/Fever > 101 Albuterol/Ipratropium (Ipratropium/Albuterol 3 Ml Ampul.Neb) 3 ml NEB Q4HRT PRN PRN Reason: Wheezing Amitriptyline HCl (Amitriptyline 25 Mg Tablet) 50 mg PO [facility] Last Admin: 06/02/22 20:14 Dose: 50 mg Atorvastatin Calcium (Atorvastatin 10 Mg Tablet) 10 mg PO QDAY [facility] Last Admin: 06/03/22 09:40 Dose: 10 mg Carvedilol (Carvedilol 12.5 Mg Tablet) [facility] Last Admin: 06/03/22 09:39 Dose: 25 mg Chlorhexidine Gluconate (Chlorhexidine Gluconate 1 Ml Oral.Sepideh) 15 ml SWABMOUTH BID [facility] Last Admin: 06/03/22 09:41 Dose: 15 ml Clopidogrel Bisulfate (Clopidogrel 75 Mg Tablet) 75 mg PO QDAY [facility] Last Admin: 06/03/22 09:39 Dose: 75 mg Docusate Sodium (Docusate Sodium 10 Mg/Ml Ml) 100 mg PT BID [facility] Last Admin: 06/03/22 09:41 Dose: 100 mg Doxazosin Mesylate (Doxazosin 4 Mg Tablet) 4 mg PO QHS [facility] Last Admin: 06/02/22 20:14 Dose: 4 mg Duloxetine HCl (Duloxetine 30 Mg Capsule) 30 mg PT QDAY [facility] Last Admin: 06/03/22 09:41 Dose: 30 mg Ferrous Sulfate (Ferrous Sulfate 325 Mg Tablet) 325 mg PO [facility] Last Admin: 06/03/22 09:40 Dose: 325 mg Heparin Sodium (Porcine) (Heparin 5,000 Unit/Ml Vial) 5,000 unit SQ Q12 [facility] Last Admin: 06/03/22 09:38 Dose: 5,000 unit Hydralazine HCl (Hydralazine 20 Mg/Ml Vial) 0 mg IV Q2HP PRN PRN Reason: Hypertension Last Admin: 06/02/22 04:09 Dose: 10 mg Acetaminophen (Ofirmev) 650 mg in 65 mls @ 130 mls/hr IV Q6HP PRN; Protocol PRN Reason: PAIN/FEVER > 101 Last Infusion: 05/29/22 01:00 Dose: Infused Levofloxacin (Levaquin) 750 mg in 150 mls @ 100 mls/hr IV Q48H [facility] Last Infusion: 06/02/22 14:16 Dose: Infused Labetalol HCl (Labetalol 5 Mg/Ml Ml) 0 mg IV Q2HP PRN PRN Reason: Hypertension Last Admin: 05/30/22 03:25 Dose: 20 mg Lactulose (Lactulose 20 Gm/30 Ml Oral.Sepideh) 10 gm PO DAILYP PRN PRN Reason: Constipation Metronidazole (Metronidazole 500 Mg Tablet) 500 mg PO Q8 JODY; Protocol Last Admin: 06/03/22 04:33 Dose: 500 mg Ondansetron HCl (Ondansetron 4 Mg/2 Ml Vial) 4 mg IV Q4HP PRN; Protocol PRN Reason: Nausea And Vomiting Pantoprazole Sodium (Pantoprazole 40 Mg Packet) 40 mg PT QAMAC [facility] Last Admin: 06/03/22 07:25 Dose: 40 mg Paliperidone 3 Mg Tablet Extended Release 24hr 1 dose PO HS [facility] Last Admin: 06/02/22 20:14 Dose: 1 dose Senna (Sennosides 8.8 Mg/5 Ml Ml) 8.8 mg PT HSP PRN PRN Reason: Constipation Sodium Biphosphate/Sodium Phosphate (Fleets Adult Enema) 1 dose NM DAILYP PRN PRN Reason: Constipation Last Admin: 05/28/22 16:36 Dose: 1 dose Sodium Chloride (0.9 % Sodium Chloride 10 Ml Syringe) 10 ml IV Q8 [facility] Last Admin: 06/03/22 04:34 Dose: 10 ml Vitamin D (Vitamin D3 25 Mcg Tablet) 50 mcg PO DAILY [facility] Last Admin: 06/03/22 09:39 Dose: 50 mcg A/P Narrative A/P Narrative: Assessment: 72-year-old male admitted for acute hypoxic respiratory failure secondary to aspiration pneumonia. Patient also had an secondary to E. coli as well as E. coli bacteremia the patient has severe oropharyngeal dysphagia and dementia. Patient is n.p.o. status due to severe dysphagia, currently has a Dobbhoff tube for tube feedings. Currently awaiting placement. *PNA, Aspiration: *Oropharyngeal Dysphagia, Severe: -pt not safe to take orally *Acute hypoxic respiratory failure: 2/2 above -now on room air *UTI (E. coli): *Bacteremia (E. coli): *RADHA on CKD IIIb: slowly improving appears to be at baseline *HYpernatremia: improved *h/o CAD: *HTN: elevated and says has been running high at home *Dementia: *Poor functional status: *Goals of care: Family would like to try reevaluation by speech therapy outpatient before decision on PEG vs no feeding tube P: -NPO, TF's -f/u with Speech therapy 5-7 days to determine if swallow fxn improved enough for oral diet -cont Levaquin for e. coli bacteremia 7-10 day course, currently also on flagyl for aspirtion pna -Supplemental oxygen prn -Avoid nephrotoxic agents -switched metoprolol to coreg for better bp control, titrate as needed or add additional -cont ASA/Plavix/Statin -CM for placement -ppx: Heparin Code status: DNR Time Spent With Patient Time: Total time spent is greater than 50% in coordination of care (as documented) at patient's floor/unit and/or counseling patient: QUALITY VTE Deep Vein Thrombosis/Pulmonary Embolism Present on Admission: No
[2022-06-03] MEDS: hydrALAZINE 20 MG/ML VIAL IV PRN (19:04)
[2022-06-03] MEDS: AMITRIPTYLINE 25 MG TABLET PO SCH (20:22)
[2022-06-03] MEDS: PALIPERIDONE 3 MG PO SCH (20:23)
[2022-06-03] MEDS: DOXAZOSIN 4 MG TABLET PO SCH (20:23)
[2022-06-04] MEDS: 0.9 % SODIUM CHLORIDE 10 ML SYRINGE IV SCH ×2 (05:23→15:26)
[2022-06-04] MEDS: metroNIDAZOLE 500 MG TABLET PO SCH ×2 (05:23→15:26)
[2022-06-04] MEDS: FERROUS SULFATE 325 MG TABLET PO SCH (08:00)
[2022-06-04] MEDS: CHLORHEXIDINE GLUCONATE 1 ML ORAL.SOL SWABMOUTH SCH (08:58)
[2022-06-04] MEDS: HEPARIN 5,000 UNIT/ML VIAL SQ SCH (08:58)
[2022-06-04] MEDS: ATORVASTATIN 10 MG TABLET PO SCH (08:59)
[2022-06-04] MEDS: DULoxetine 30 MG CAPSULE PT SCH (08:59)
[2022-06-04] MEDS: VITAMIN D3 25 MCG TABLET PO SCH (08:59)
[2022-06-04] MEDS: PANTOPRAZOLE 40 MG PACKET PT SCH (08:59)
[2022-06-04] MEDS: CLOPIDOGREL 75 MG TABLET PO SCH (09:00)
[2022-06-04] MEDS: CARVEDILOL 12.5 MG TABLET PT SCH ×2 (09:00→18:14)
[2022-06-04] MEDS: DOCUSATE SODIUM 10 MG/ML ML PT SCH (09:00)
[2022-06-04] MEDS: LEVOFLOXACIN 750 MG/150 ML BAG IV SCH (10:09)
== END 2022-06-04 13:50 | DRG 177 ==
LOC: ED 12:14 → ICU 21:46 → MEDSUR 05-29 12:02
PROVIDERS: ADMIT Internal Medicine; ATTEND Internal Medicine

== ENCOUNTER 2022-06-09 00:46 | Observation (INO) ==
[2022-06-09 01:22] LABS: POC Calcium, Ionized 1.1 (1.16-1.32); POC Creatinine 1.7 (0.6-1.2); POC Potassium 4.6 (3.3-5.1)
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
[2022-06-09] MEDS ORDERED: FUROSEMIDE 40 MG/4 ML VIAL IV ONE (01:49)
[2022-06-09 02:04] LABS: Basophils # (Auto) 0.07 K/mcL (0.00-0.30); Basophils % (Auto) 0.3 % (0.0-2.0); Eosinophils # (Auto) 0 K/mcL (0.00-0.70); Eosinophils % (Auto) 0 % (0.0-7.0); Hematocrit 37.5 % (40.1-51.0); Lymphocytes # (Auto) 1.48 K/mcL (1.50-4.80); Lymphocytes % (Auto) 5.6 % (15.5-49.0); Mean Cell Volume 87.8 fL (80.0-100.0); Mean Platelet Volume 9.2 fL (8.8-12.5); Monocytes # (Auto) 2.38 K/mcL (0.10-0.90); Neutrophils % (Auto) 84.2 % (38.0-78.0); Platelet Count 631 K/mcL (140-440); RBC 4.27 M/mcL (4.63-6.08); Red Cell Distribution Width 17.2 % (11.5-14.5); WBC 26.5 K/mcL (4.5-11.0)
[2022-06-09] MEDS ORDERED: VANCOMYCIN 1,000 MG in 0.9 % SODIUM CHLORIDE 250 ML IV ONE (02:27)
[2022-06-09] MEDS ORDERED: NALOXONE HCL 0.4 MG/ML VIAL IV PRN (03:13)
[2022-06-09] MEDS ORDERED: morphine 2 MG/ML VIAL IV PRN (03:13)
[2022-06-09] MEDS ORDERED: morphine 4 MG/ML VIAL NEB PRN (08:08)
[2022-06-09] MEDS ORDERED: ONDANSETRON 4 MG/2 ML VIAL IV PRN (08:08)
[2022-06-09] MEDS ORDERED: LACTOPEROXI/GLUC OXID/POT THIO 1 EACH GEL..EA. TOPICAL PRN (08:08)
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
[2022-06-09] MEDS ORDERED: SCOPOLAMINE 1 PATCH PATCH TOPICAL SCH (08:15)
--- NOTE | 2022-06-09 08:38 | EKG ---
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
[2022-06-09] MEDS ORDERED: DOCUSATE SODIUM 100 MG CAPSULE PO SCH (09:00)
[2022-06-09] MEDS: LORazepam 2 MG/ML VIAL IV PRN ×4 (09:24→17:38)
[2022-06-09] MEDS: morphine 2 MG/ML VIAL IV PRN ×3 (11:38→16:48)
[2022-06-09] MEDS ORDERED: 0.9 % SODIUM CHLORIDE 10 ML SYRINGE IV SCH (14:00)
--- NOTE | 2022-06-09 19:00 | Death Note ---
Discharge Sum: Prov Provider Patient information: Note initiated : 06/09/22 at 7:00 pm Service Date, if different from initiated Date: [] Patient: Rich Jasmine a 72 y/o M admitted on 06/09/22 for Shortness of breath. Chief Complaint: [] Primary care physician: Calli Ordaz Consults: 06/09/22 Consult to Physician [CONS] Stat Comment: Consulting Provider: Ronn Rogers Reason For Exam: Physician to Consult Discharge Sum: Summary Date and Time Date of admission: 06/09/22 03:54 Date of : 06/09/22 Time of : 18:51 Summary Details: History of present illness: Mr. Jasmine is a 72 year old M Resents to the ED for hypoxia and altered mental status. Patient to be hypoxic by EMS and put on 15 L nonrebreather. The Dobbhoff that he had in place was pulled because of distended abdomen. Patient was recently admitted for aspiration pneumonia and evaluated by speech therapy was not safe for any oral intake. Plan was to leave the Dobbhoff in and have speech therapy follow-up outpatient in a week to determine if there was any improve enough to put on a safe diet or to consider hospice if he did not show any improvement versus PEG tube placement. Family was called and stated they did not want any aggressive interventions and to not replace the Dobbhoff. She refused further chest imaging and requested to transition to comfort care. And subsequently at 1851 with family at bedside. Assessment: *PNA, Aspiration (recurrent): *Oropharyngeal Dysphagia, Severe: *Acute hypoxic respiratory failure: 2/2 above *RADHA on CKD IIIb: *h/o CAD: *HTN: *Dementia: *Poor functional status: Additional Data Attending physician: Ronn Rogers
== END 2022-06-09 21:53 | disposition expired ==
LOC: ED 00:46 → MEDSUR 00:46
PROVIDERS: ADMIT Internal Medicine; ATTEND Internal Medicine